=== PATIENT | male | born 1960 | race Caucasian/White ===

== ENCOUNTER 2019-11-05 09:16 | Outpatient (CLI) | payer BC, SELFPAY ==
--- NOTE | 2019-11-05 09:30 | USCV_ITS ---
Rolly Olivier Age: 59 Gender: M : 1960 Exam Date: 11/05/2019 09:20 Ordering Phys: Yahir Rodriguez MD ([email or web address]) Technologist: Veronica Escobedo Exam Location: [facility] [place] Indication: MILD BP: 153 / 96 HR: 79 Rhythm: Sinus Technical Quality: Fair MEASUREMENTS (Male / Female) Normal Values 2D ECHO LV Diastolic Diameter PLAX 4.3 cm 4.2 - 5.9 / 3.9 - 5.3 cm LV Systolic Diameter PLAX 2.6 cm LV Chamber Size 4.1 cm IVS Diastolic Thickness 1.7 cm 0.6 - 1.0 / 0.6 - 0.9 cm IVS Systolic Thickness 1.9 cm LVPW Diastolic Thickness 0.9 cm 0.6 - 1.0 / 0.6 - 0.9 cm LVPW Systolic Thickness 1.9 cm RV Chamber Size 3.3 cm LVOT Diameter 2.1 cm LV Ejection Fraction 2D Teich 69.6 % LA Diameter 4.6 cm LA Width 4.9 cm LA Height 4.7 cm RA Width 2.9 cm RA Height 3.8 cm M-MODE LV Diastolic Diameter MM 6.5 cm 4.2 - 5.9 / 3.9 - 5.3 cm LV Systolic Diameter MM 4.3 cm LV Ejection Fraction MM Teich 62.8 % IVS Diastolic Thickness MM 1.1 cm 0.6 - 1.0 / 0.6 - 0.9 cm IVS Systolic Thickness MM 1.5 cm LVPW Diastolic Thickness MM 1.3 cm 0.6 - 1.0 / 0.6 - 0.9 cm LVPW Systolic Thickness MM 1.9 cm RV Diastolic Diameter MM 1.5 cm Aortic Annulus Diameter 2.4 cm LA Ao Ratio MM 2.0 MV E Point Septal Separation 1.2 cm DOPPLER AV Peak Velocity 452.0 cm/s LVOT Peak Velocity 86.0 cm/s AV Area Cont Eq vti 0.6 cm squared AV Area Cont Eq pk 0.6 cm squared MV Area PHT 3.4 cm squared Mitral E to A Ratio 1.2 MV E' Velocity 10.0 cm/s Mitral E to MV E' Ratio 15.9 Mitral E to LV E' Lateral Ratio 11.8 Mitral E to LV E' Septal Ratio 25.3 TR Peak Velocity 309.4 cm/s TR Peak Gradient 38.3 mmHg TR Mean Velocity 219.6 cm/s TR Mean Gradient 21.5 mmHg TR Velocity Time Integral 83.3 cm TV Peak E Velocity 41.0 cm/s Right Atrial Pressure 3.0 mmHg Pulmonary Artery Systolic Pressu 41.3 mmHg PV Peak Velocity 80.0 cm/s FINDINGS Left Ventricle Normal left ventricular cavity size. Mild left ventricular hypertrophy. Normal left ventricular systolic function. No regional wall motion abnormalities. Grade II/IV diastolic dysfunction, moderately elevated filling pressures. Left ventricular ejection fraction is estimated at 60 %. Right Ventricle Normal right ventricular size and systolic function. Mild pulmonary hypertension, RVSP 41.3 mmHg. Right Atrium The right atrium is normal in size. Left Atrium Mildly increased left atrial size. Mitral Valve Structurally normal mitral valve without significant stenosis or prolapse. There is no mitral regurgitation. Aortic Valve Structurally normal trileaflet aortic valve. Moderate aortic valve calcification. Severe aortic valve stenosis, mean gradient 46.4 mmHg, IMELDA 0.59 cm squared. Tricuspid Valve Structurally normal tricuspid valve. Trace to mild tricuspid valve regurgitation. Pulmonic Valve Pulmonic valve not well visualized. Pericardium Normal pericardium without effusion. Aorta Normal ascending aorta dimension. CONCLUSIONS Normal left ventricular cavity size. Mild left ventricular hypertrophy. Normal left ventricular systolic function. No regional wall motion abnormalities. Grade II/IV diastolic dysfunction, moderately elevated filling pressures. Left ventricular ejection fraction is estimated at 60 %. Normal right ventricular size and systolic function. Mild pulmonary hypertension, RVSP 41.3 mmHg. Mildly increased left atrial size. Structurally normal trileaflet aortic valve. Moderate aortic valve calcification. Severe aortic valve stenosis, mean gradient 46.4 mmHg, IMELDA 0.59 cm squared. When compared to the previous echo done 11/09/2018, there has been a significant worsening of the aortic stenosis. Otherwise, the echo is unchanged. Dr. Yahir Rodriguez MD (Electronically Signed) Final Date: 05 November 2019 11:42 S
== END 2019-11-05 09:17 | disposition home or self-care (01) ==
PROVIDERS: Family Provider Family Medicine; PCP Internal Medicine; Visit Provider Internal Medicine Cardiovascular Disease
DX: I35.0 Nonrheumatic aortic (valve) stenosis (principal); I27.20 Pulmonary hypertension, unspecified; I51.7 Cardiomegaly
CPT/HCPCS: 93306

== ENCOUNTER → 2020-01-03 12:29 | Outpatient (BNVA) | payer BC, SELFPAY | PROVIDERS: Family Provider Family Medicine; PCP Internal Medicine; Visit Provider Nurse Practitioner Family | DX: R42 Dizziness and giddiness (principal); E13.9 Other specified diabetes mellitus without complications; I10 Essential (primary) hypertension; H66.92 Otitis media, unspecified, left ear; J44.9 Chronic obstructive pulmonary disease, unspecified | CPT/HCPCS: 36416; 80053; 80061; 82962; 83036; 84443; 85025 ==

== ENCOUNTER 2020-01-13 07:54 | Observation (INO) | payer BC, SELFPAY ==
[2020-01-13] VITALS (7 sets, daily range): BP systolic 117–150; BP diastolic 74–99; PULSE 67–83; RESP 16–18; TEMP 36.7–36.8; O2SAT 95–97; BMI 37.6
--- NOTE | 2020-01-13 06:23 | XACV_ITS ---
Ht: 175 cm Wt: 116 kg BSA: 2.42 m2 Gender: Male : 1960 Exam Priority: Routine Procedure(s): Procedure Description: Diagnostic procedure Procedure Description: Left Heart Catheterization Procedure Description: Coronary Angiography Diagnostic Cath Status: Elective Diagnostic Findings Patient has a twin brother who has recently gone open aortic valve replacement. Patient's echo now shows severe aortic stenosis. Angiography recommended for pre-TAVR assessment. Angiography reveals right coronary artery dominance. There is calcification of the aortic valve and mild to moderate calcification of the proximal coronary arteries. There is minor generalized luminal plaquing but the coronary arteries are normal. PCI Status: Elective Interventional RX Recommendation: other cardiac therapy w/o CABG/PCI Diagnostic RX Recommendation: other cardiac therapy w/o CABG/PCI Anticoagulation: Heparin Pressures Phase:Rest AO : 135 mmHg / 92 mmHg ( 109 mmHg ) @ 2:25:00 AM 127 mmHg / 89 mmHg ( 106 mmHg ) @ 2:26:00 AM Clinical Evaluation EBL: 5mL-10mL Procedural Details Procedure Consent Obtained. Pre-Procedure Time Out. Identified patient by full name and date of as verbalized by the patient/guarantor. Does the consent match the physician's order: Yes. Accurate & Complete Informed Consent: Yes. Inpatient/Outpatient History & Physical on Chart: Yes. If H&P is completed, is and addenduem needed: No; If yes, is the addendum complete: N/A. Visualize and Verify Site with Patient/Guarantor: N/A. Relevant Radiology Images available: N/A. The risks, benefits, and alternatives of sedation and/or procedure were discussed by physician. The patient agrees to continue. Procedure started. 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 Chest Pain Symptom Assessment: Non-anginal Chest Pain. Cardiovascular Instability: No,. Correct patient, site and procedure confirmed by cath team. Current diagnosis: Aortic stenosis. PERRLA. 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 Lungs clear x 5 lobes. IV Site on Arrival: 20 gauge in the left anticubital. IV Fluids: 0.9% NaCl at KVO. 0 mL infused prior to catheterization laboratory technician. Pre Procedural Pulses: bilateral dorsalis pedis was 3+. Pre Procedural Pulses: bilateral posterior tibial was 3+. Pre Procedural Pulses: right radial was 3+. Oxygen started at 2liters/min via nasal canula. bilateral groins was prepped with chloroprep then draped in the usual sterile fashion. right radial was prepped with chloroprep then draped in the usual sterile fashion. Physician notified. Baseline sample Acquired. HR: 88 BPM. Patient's family unavailable. Equipment: 6F - Radial. Physician arrived. Physician scrubbed in. Immediate Pre-Procedure Time Out. Correct Patient: Yes; Correct Procedure: Yes; Correct Site: Yes; Correct Patient Position: Yes; Correct Supplies: Yes; Dried Flammable Prep: Yes; Blood Products Available: N/A;. Lidocaine 1% infiltrated to the right radial. Patient has and allergy to sulfa. Arterial access obtained. A 6 belgian TIG catheter in over wire. Catheter inserted over the exchange wire. Multiple views taken of left coronary artery. Catheter out. Catheter removed over the exchange wire. A 6 belgian JR4 catheter in over wire. Catheter inserted over the exchange wire. Multiple views taken of right coronary artery. Catheter removed over the exchange wire. TR band placed. Hemostasis obtained. Post Procedure: Pulses reassessed and unchanged. PERRLA. 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 No VTE prophylaxis required. Medication's Wasted: Lidocaine 1% = 18 mL. Medication's Wasted: Heparin = 1000 mL. Medication's Wasted: Nitro = 49.8 mg. Total IV fluids: 50 mL. Fluoro: 3:09. Contrast type used: Omnipaque 300 mgI/mL, 500 mL bottle. [id number]. Post-op diagnosis: aortic stenosis. Complications: none. Estimated blood loss: 5mL-10mL. Procedure completed. Patient transferred by wheelchair to [address] [place] [address]. Site: Right Radial artery Sheath Size: 6 Fr Hemostasis Success: Unsuccessful Procedure Medications Start: 7:09 AM Stop: 7:09 AM Medication: Versed Amount: 1 mg Route: I.V. Start: 7:09 AM Stop: 7: AM Medication: Fentanyl Amount: 50 mcg Route: I.V. Start: 7:13 AM Stop: 7:13 AM Medication: Versed Amount: 1 mg Route: I.V. Start: 7:18 AM Stop: 7:18 AM Medication: Fentanyl Amount: 50 mcg Route: I.V. Start: 7:22 AM Stop: 7:22 AM Medication: Verapamil Amount: 5 mg Route: I.A. Start: 7:23 AM Stop: 7:23 AM Medication: Nitrogylcerin Amount: 200 mcg Route: I.A. Start: 7:25 AM Stop: 7:25 AM Medication: Heparin Amount: 5000 units Route: I.V. Start: 7:25 AM Stop: 7:25 AM Medication: Versed Amount: 1 mg Route: I.V. I, the attending physician, have reviewed and verified all procedure medications. Yes, all medications given per verbal order History/Risk Factors Hypertension: Yes Dyslipidemia: No Peripheral Arterial Disease (PAD): No Myocardial Infarction (OK): No Obesity: No Renal Disease: No Tobacco Use: Current/Recent(w/in 1 year) Prior Interventions PCI: No CABG: No Valve Surgery: No Report Signatures Finalized by:Dr. Yahir Rodriguez MD on 01/13/2020 7:47:36 AM
--- NOTE | 2020-01-13 06:55 | SUR.PREOP ---
MD NOTIFICATION MD aware patient ready for cath. Discussed pre op bloodwork dating 01/02. Verbal okay to proceed and use the labs from 01/02
[2020-01-13] MEDS: diphenhydrAMINE 50 mg Capsule PO (06:58)
--- NOTE | 2020-01-13 09:37 | PC.CHAP ---
Pastoral Care Encounter/Spiritual Assessment Type of Contact [] Declined manufacturing electrician visit [] Patient/Family/Request visit [] Outpatient visit [] Follow-up visit [] Physician referral [] Code/Alert [x] Routine visit [] Staff referral [] Actively dying [] Patient sleeping [] Family support [] [] Out of room [] Palliative care [] [] Receiving care in room [] Pre-surgical visit [] Trauma [] Long length of stay [] ICU visit [] Other: Relational/Emotional Strength [] Patient feels connected with others/family/visitors/staff [] Distress [] Loneliness/isolation [] Abandonment Spirituality of Patient [] Person of Jo-Ann [] Attends Catholic of their Jo-Ann [] Believes in Prayer [] Reads Bible or Moravian materials [] There are Spiritual issues to be addressed Motion Picture Narrator Interventions [x] Prayer [] Active listening [] Non-anxious presence [] Spiritual/emotional support [] Crisis/trauma care [] Spiritual counseling [] Bereavement support [] Provided bereavement packet [] Provided Bible/devotional materials [] Provided toy/stuffed animal, coloring book to patient or family member [] Provided Communion [] Anointing/[place] [] Salvation [x] Completed spiritual assessment [] Other: Impact on Illness or Injury [] Angry [] Fearful [] Anxious [] Often cries [] Exhaustion [] Unable to work [] Unable to attend mormon [] Unable to walk/stand [] Unable to read [] Unable to drive [] Unable to eat/drink [] Unable to sleep [] Unable to be with family [] Patient intubated [] Other: Summary Patient resting well. Patient in good spirits Time spent with patient 10 min
--- NOTE | 2020-01-16 16:50 | SUR.PREOP ---
Smoking Cessation and Pulmonary Rehab information sent to patient with a schedule of classes post discharge.
== END 2020-01-13 13:31 | disposition home or self-care (01) ==
LOC: MEDSURG 08:55
PROVIDERS: Internal Medicine Cardiovascular Disease; Admitting Provider Internal Medicine Cardiovascular Disease; Family Provider Family Medicine; PCP Family Medicine; Visit Provider Internal Medicine Cardiovascular Disease
DX: I35.0 Nonrheumatic aortic (valve) stenosis (principal); I70.0 Atherosclerosis of aorta; I25.10 Atherosclerotic heart disease of native coronary artery without angina pectoris; I10 Essential (primary) hypertension; F17.210 Nicotine dependence, cigarettes, uncomplicated; J44.9 Chronic obstructive pulmonary disease, unspecified; E13.9 Other specified diabetes mellitus without complications; Z82.49 Family history of ischemic heart disease and other diseases of the circulatory system
CPT/HCPCS: 93454; C1769; C1887; C1894; G0378; J1644; J2001; J2250; J3010; J3490; J7030; Q0163; Q9967

== ENCOUNTER → 2020-01-20 11:44 | Outpatient (BNVA) | payer BC, SELFPAY | PROVIDERS: Family Provider Family Medicine; PCP Family Medicine; Visit Provider Nurse Practitioner Family | DX: I35.0 Nonrheumatic aortic (valve) stenosis (principal) | CPT/HCPCS: 80048 ==

== ENCOUNTER 2020-12-31 13:13 | Outpatient (CLI) | payer BC, SELFPAY ==
--- NOTE | 2020-12-31 13:24 | XR_ITS ---
WS: [id number] Right shoulder, 2 views, 12/31/2020 Clinical Data: PAIN IN R SHOULDER Comparison: None. Findings: No fractures or dislocations are seen. The AC joint with mild osteoarthritis. The adjacent right clav icle, right scapula and ribs are normal. The soft tissues are unremarkable. XR/XR shoulder RT min 2V* [id number] Impression: Osteoarthritis of the right AC joint.
--- NOTE | 2020-12-31 13:24 | XR_ITS ---
WS: [id number] Lateral views of cervical spine in the flexion, extension and neutral positions. 12/31/2020 Clinical Data: CERVICALGIA Comparison: Cervical spine, 01/28/2019. Findings: There is calcification of the anterior longitudinal ligament at C2-C3 and C3-C4. There is anterior os teophytic spurring from C3 through C7. The disc heights are normal. No compression fractures are seen . There is no prevertebral soft tissue swelling. On flexion and extension there is no subluxation or limitation of motion. XR/XR cervical spine fl/ex [id number] Impression: 1. Anterior osteophyte spurring from C3 through C7. 2. Negative for limitation of motion or subluxation on flexion or extension.
== END 2020-12-31 13:14 | disposition home or self-care (01) ==
LOC: RAD 13:20
PROVIDERS: PCP Family Medicine; Visit Provider Nurse Practitioner
DX: M54.2 Cervicalgia (principal); M25.78 Osteophyte, vertebrae; M19.011 Primary osteoarthritis, right shoulder
CPT/HCPCS: 72040; 73030

== ENCOUNTER 2021-01-08 12:17 | Outpatient (CLI) | payer BC, SELFPAY ==
--- NOTE | 2021-01-08 12:22 | MR_ITS ---
WS: [id number] MRI CERVICAL SPINE NONCONTRAST TECHNIQUE: Sagittal T1, T2 and STIR imaging. Axial T2, gradient, and fiesta imaging. CLINICAL INFORMATION: CERVICALGIA COMPARISON: None. FINDINGS: Straightening of the normal cervical lordosis. Cord signal is normal. Mild disc bulging C4-C6. C2-C3: Normal. C3-C4: Mild bilateral bony foraminal narrowing left greater than right. Mild facet arthropathy. Spina l canal is patent. C4-C5: Mild disc osteophytic ridging. Mild bilateral bony foraminal narrowing. Mild facet arthropathy . Spinal canal is patent. C5-C6: Disc osteophyte complex with endplate ridging. Mild central canal stenosis. Moderate right and no significant left foraminal narrowing. Mild to moderate facet arthropathy. C6-C7: Disc osteophyte complex with endplate ridging. Mild central canal stenosis. Moderate to severe left and mild to moderate right bony foraminal narrowing. Mild facet arthropathy. C7-T1: No significant disc bulging. Spinal canal and foramen are patent. Visualized brain stem structures: Normal. Prevertebral soft tissues: Normal. MR/MR cervical spin wo con* [id number] IMPRESSION: 1. Straightening of the normal cervical lordosis. Cord signal is normal. 2. Mild central canal stenosis C5-C6 and C6-C7 with disc osteophyte complexes. 3. Moderate to severe bony foraminal narrowing right C5-C6 and left C6-C7. 4. Otherwise mild to moderate bony foraminal narrowing described above.
== END 2021-01-08 12:18 | disposition home or self-care (01) ==
PROVIDERS: PCP Family Medicine; Visit Provider Nurse Practitioner
DX: M54.2 Cervicalgia (principal); M48.02 Spinal stenosis, cervical region; M25.78 Osteophyte, vertebrae
CPT/HCPCS: 72141

== ENCOUNTER 2021-07-09 07:28 | Outpatient (CLI) | payer BC, SELFPAY | END 2021-07-09 07:29 | disposition home or self-care (01) | LOC: SLEEP 07:29 | PROVIDERS: PCP Family Medicine; Visit Provider Anesthesiology Pain Medicine | DX: G47.10 Hypersomnia, unspecified (principal); R06.83 Snoring | CPT/HCPCS: 95810 ==

== ENCOUNTER 2022-01-23 23:25 | Inpatient (IN) | payer BC, SELFPAY ==
[2022-01-23 23:35] VITALS: BP 101/68; PULSE 143; RESP 26; TEMP 36.1; O2SAT 91; BMI 41.3
--- NOTE | 2022-01-23 23:35 | ECG_ITS ---
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 Measurements Intervals [place] Rate: 148 P: MN: QRS: 15 QRSD: 148 T: 194 QT: 298 QTc: 468 Interpretive Statements ATRIAL FIBRILLATION WITH RAPID VENTRICULAR RESPONSE LEFT BUNDLE BRANCH BLOCK [120+ ms QRS DURATION, 80+ ms Q/S IN V1/V2, 85+ ms R IN I/aVL/V5/V6] No previous ECG available for comparison Electronically Signed On 01-24-2022 20:57:51 CDT by Kristen Crisostomo M.D. [email or web address].[id number]
--- NOTE | 2022-01-23 23:35 | XRR_ITS ---
PROCEDURE INFORMATION: Exam: XR Chest Exam date and time: 01/24/2022 12:12 AM Age: 61 years old Clinical indication: Pain; Tachypnea; Chest pressure; Additional info: Cp TECHNIQUE: Imaging protocol: XR of the chest. Views: 1 view. COMPARISON: CR Chest 2 views* [id number] 01/28/2019 3:09 PM FINDINGS: Lungs: Large parenchymal opacification in the perihilar aspect of the left upper lobe. Pleural spaces: Unremarkable. No pleural effusion. No pneumothorax. Heart/Mediastinum: Unremarkable. No cardiomegaly. Bones/joints: Unremarkable. XR/XR chest 1V portable [id number] IMPRESSION: 1. Large left upper lobe lesion. Favor bronchopneumonia. 2. Radiographic follow-up is indicated to exclude mass and document resolution.
[2022-01-23] MEDS: sodium chloride 0.9% 1,000 ML 999 ML IV (23:41)
[2022-01-23] MEDS: dilTIAZem 5 mg/mL SDV 5 mL 15 MG IVP (23:48)
[2022-01-24] VITALS (33 sets, daily range): BP systolic 87–165; BP diastolic 65–93; PULSE 81–120; RESP 16–36; TEMP 36.7–37.6; O2SAT 87–99
[2022-01-24 00:13] LABS: INR 1.36 (0.8-1.2)
[2022-01-24 00:14] LABS: Partial Thromboplastin Time 43.6 SECONDS (23.9-36.7)
[2022-01-24 00:16] LABS: Basophils # 0.1 10^3/uL (0.0-0.1); Basophils % 0.3 %; D Dimer 2.27 ug/mIFEU (0-0.59); Hemoglobin 12.9 g/dL (11.7-16.6); Lymphocytes # 1.4 10^3/uL (0.8-4.8); Lymphocytes % 8.1 %; Mean Corpuscular HGB Conc 32.3 g/dL (30.0-36.0); Mean Corpuscular Hemoglobin 28.5 pg (28.0-34.0); Mean Corpuscular Volume 88.3 fl (80-94); Mean Platelet Volume 11.5 fL (7.4-10.4); Monocytes # 1.4 10^3/uL (0.2-0.9); Monocytes % 8.4 %; Neutrophils # 13.81 10^3/uL (1.8-7.7); Neutrophils % 82.6 %; Nucleated Red Blood Cells % 0 %; Platelet Count 205 10^3/cmm (130-400); Red Blood Count 4.53 10^6/uL (4.1-5.3); Red Cell Distribution Width 14.7 % (12.1-15.1); White Blood Count 16.7 10^3/uL (4.0-10.0)
--- NOTE | 2022-01-24 00:16 | CTR_ITS ---
PROCEDURE INFORMATION: Exam: CTA Chest With Contrast Exam date and time: 01/24/2022 12:47 AM Age: 61 years old Clinical indication: Pain; Left-sided; Patient HX: Chronic cough and wheeze w new L sided cp; Additional info: Chest pain TECHNIQUE: Imaging protocol: Computed tomographic angiography of the chest with contrast. 3D rendering (Not supervised by radiologist): MIP and/or 3D reconstructed images were created by the technologist. Radiation optimization: All CT scans at this facility use at least one of these dose optimization techniques: automated exposure control; mA and/or kV adjustment per patient size (includes targeted exams where dose is matched to clinical indication); or iterative reconstruction. Contrast material: OMNI 350; Contrast volume: 80 ml; Contrast route: INTRAVENOUS (IV); COMPARISON: CR (CHEST, ) 01/24/2022 12:12 AM RADIATION DOSE METRICS: Total DLP (mGy-cm): 618.72 FINDINGS: Pulmonary arteries: Normal. No pulmonary emboli. Aorta: Unremarkable. No aortic aneurysm. No aortic dissection. Lungs: Large geographic area of consolidation in the posterior left upper lobe with air bronchograms. Minor patchy ground-glass foci within right upper lobe. Mild diffuse bronchial wall thickening. No significant bronchiectasis. Negative for peripheral honeycombing. Pleural spaces: Small volume left pleural effusion. Negative for pneumothorax. Heart: Left ventricle is mildly enlarged. Negative for pericardial effusion. Lymph nodes: Enlarged, calcified subcarinal lymph nodes in the mediastinum. Nonenlarged calcified right paratracheal lymph nodes in the mediastinum. Adrenal glands: Mass of the right adrenal gland with circumscribed margins. Stippled calcifications within the mass. Mass dimensions 5.4 cm x 3.9 cm in the transaxial plane. Areas of the mass are measuring low-attenuation, including fat density. Bones/joints: Unremarkable. No acute fracture. Soft tissues: Unremarkable. CT/CT angio chest PE protcl [id number] IMPRESSION: 1. Left upper lobe bronchopneumonia with small parapneumonic effusion. 2. Negative for pulmonary artery embolism. 3. Incidental finding of a large right adrenal gland mass which contains macroscopic calcifications and low density areas which are measuring lipid attenuation. 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 Adrenal protocol CT scan recommended in 6 months.
[2022-01-24 00:29] LABS: Alanine Aminotransferase 21 U/L (0-41); Albumin Level 3.9 g/dL (3.5-5.2); Alkaline Phosphatase 61 IU/L (40-130); Anion Gap 17.3 (5-19); Aspartate Amino Transferase 29 U/L (0-40); Blood Urea Nitrogen 19 mg/dL (8-23); Carbon Dioxide 21 mmol/L (22-29); Chloride 95 mmol/L (98-107); Creatine Phosphokinase 407 U/L (39-308); Creatinine Clr Calc Pharmacy 110.7735; Globulin 2.4 g/dL (1.3-4.6); Glomerular Filtration Rate 85.2 mL/min (90-130); Glucose 145 mg/dL (65-115); NT Pro B Type Natriuretic Pept 4400 pg/mL (0-125); Osmolality Calculated 273 mOsm/kg (285-295); Potassium 4.3 mmol/L (3.5-5.1); Sodium 129 mmol/L (136-145); Total Bilirubin 0.7 mg/dL (0.15-1.2); Total Protein 6.3 g/dL (6.6-8.7)
[2022-01-24 00:33] LABS: Troponin(5th) Baseline 79 ng/L (0-15)
[2022-01-24] MEDS: iohexol 350 mg/mL 100 mL Btl IV (00:53)
--- NOTE | 2022-01-24 01:35 | ECG_ITS ---
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 Measurements Intervals [place] Rate: 105 P: [place]: QRS: 37 QRSD: 150 T: 201 QT: 370 QTc: 491 Interpretive Statements ATRIAL FIBRILLATION WITH RAPID VENTRICULAR RESPONSE LEFT BUNDLE BRANCH BLOCK [120+ ms QRS DURATION, 80+ ms Q/S IN V1/V2, 85+ ms R IN I/aVL/V5/V6] Compared to ECG 01/23/2022 23:30:59 No significant changes Electronically Signed On 01-25-2022 17:18:09 CDT by Otto Hollingsworth M.D. [id number]
[2022-01-24] MEDS: cefTRIAXone 1,000 MG in sodium chloride 0.9% (plus) 50 ML 100 MG IV (02:03)
[2022-01-24 02:11] LABS: Troponin 5 2HR 81.35 ng/L (0-15)
--- NOTE | 2022-01-24 02:11 | P.HP_ITS ---
Providers/Chief Complaint Admitting Physician: Merlin Calloway DO Primary Care Provider: Betzy Novoa MD Chief Complaint: Chest Pain History of Present Illness the patient is a 61-year-old male who presented to [facility] which started approximately 1 week prior to hospitalization. He states it was gradual onset. He admits to onset of fever, nausea, cough which is productive yellow sputum, wheeze, myalgia, dizziness, sensation of rapid heartbeat. The patient also complains of chest pain which is substernal without radiation. His describes a sharpness and has been intermittent since the time of onset. As worst rated 7 out of 10 and currently rates 1 out of 10. He did not take any medication for the pain at home. The patient denies rigors, vomiting, abdominal pain, d iarrhea, dyspnea, lightheadedness, diaphoresis, palpitations, sensation knee regular heartbeat. He denies any new peripheral edema. He denies dysgeusia, a no dyspnea, headache. He presents for further evaluation Review of Systems General: Reports: 10 or more systems reviewed and unremarkable except in HPI and below Medications/Allergies Home Medications Medication Instructions Recorded Confirmed Last Taken Type tizanidine 4 mg tablet 4 mg PO .qhs PRN #30 tab 11/21/19 04/21/21 Unknown Rx fluticasone 250 mcg-salmeterol 50 1 inh INHALATION BID #60 each 11/25/19 04/21/21 01/12/20 13:00 Rx mcg/dose blistr powdr for inhalation (Wixela Inhub) meclizine 25 mg tablet 25 mg PO TID PRN #20 tab 01/03/20 04/21/21 Unknown Rx hydrocodone 5 mg-acetaminophen 325 1 tab PO Q8H 10 Days #30 tab 12/15/20 04/21/21 Unknown Rx mg tablet albuterol sulfate 90 mcg/actuation See Rx Instructions .ROUTE 06/09/21 Unknown Rx aerosol inhaler .COMPLEX #8.5 g celecoxib 200 mg capsule See Rx Instructions .ROUTE 07/26/21 Unknown Rx .COMPLEX #60 cap Allergies Allergy/AdvReac Type Severity Reaction Status Date / Time Sulfa (Sulfonamide Allergy Unknown Unknown Verified 04/21/21 15:22 Antibiotics) PFSH Acute PFSH: Medical History Aortic stenosis COPD (chronic obstructive pulmonary disease) Diabetes 1.5, managed as type 2 History of colon cancer HTN (hypertension) Osteoarthritis Tobacco abuse Surgical History Status post laparoscopic colectomy Family History Father Cancer COLON CA Social History Smoking and tobacco status: current every day smoker cigarettes Packs smoked per day: 1 Marital status: / Current occupational status: employed Current occupation: [employer] Vitals/I&O/Wt Last Vital Signs Temp 97.0 F L 01/23/22 23:35 Pulse 143 H 01/23/22 23:35 Resp 26 H 01/23/22 23:35 BP 101/68 01/23/22 23:35 Pulse Ox 91 01/23/22 23:35 Weight last 48 hrs Weight 127.006 kg Physical Exam Narrative: General: -Alert -No acute distress -No dyspnea -No tachypnea Head: -Atraumatic -Normocephalic Eyes: -Pupils equally round and reactive to light and accommodation -Extraocular muscles intact Neurological: -Cranial nerves II-XII intact Neck: -No jugular venous distention -No thyromegaly -No cervical lymphadenopathy Heart: -Regular rate -Regular rhythm -No murmurs -No gallops -No rubs Lungs: -No wheeze -No rhonchi -No rales ? Abdomen: -Normal bowel sounds in all four quadrants -No rebound -No guarding -No tenderness Extremities: -2/4 pulse in all four extremities -No clubbing -No cyanosis -No edema -No calf tenderness present bilaterally -Negative Migel?s sign bilaterally Musculoskeletal: -5/5 bilateral upper extremity strength -5/5 bilateral lower extremity strength -Sensorium of bilateral upper extremities are equal and intact -Sensorium of bilateral lower extremities are equal and intact ? Additional Details / Additional Findings / Exceptions / Miscellaneous: Data : 01/23/22 23:33 01/23/22 23:33 Micro: Microbiology 01/24/22 01:45 Blood Culture - Preliminary Blood SPECIMEN COLLECTED 01/24/22 01:40 Blood Culture - Preliminary Blood SPECIMEN COLLECTED A&P Assessment and plan (1) Osteoarthritis: Status: Acute Qualifiers: Osteoarthritis location: unspecified site Osteoarthritis type: unspecified Qualified Code(s): M19.90 - Unspecified osteoarthritis, unspecified site Plan atrial for ablation, new onset. Will monitor patient on telemetry and checks her cardiac enzymes. Check TSH, free T4, magnesium level. We will recheck EKG on the morning of January 24, 2022. Echo Karg grams pending. IV heparin drip per protocol plus IV Cardizem drip per protocol Pneumonia. Is at the mycin 500 Mill grams IV daily plus Rocephin 1 g IV daily plus ipratropium every 4 hours Right adrenal mass. Patient will require right adrenal CT approach per protocol 6 months post discharge which would be in July 12, 2022 Hyponatremia. We will monitor sodium level intermittently. IV normal saline 100 ML's per hour Muscle spasm Chronic pain Elevated troponin. This likely sequelae of atrial for ablation with rapid ventricular response. Will monitor patient on telemetry and checks her cardiac enzymes. echo Karg grams pending.We will recheck EKG on the morning of January 24, 2022. Aspirin 81 Mill grams by mouth daily plus Lipitor 40 Mill cans by mouth daily at bedtime. no beta-shaneka or nitroglycerin secondary to borderline blood pressure Hypocalcemia. Will monitor calcium level intermittently and supplements necessary Osteoarthritis COPD, not O2 dependent. Solu-Medrol 60 Mill grams IV every 8 hours plus ipratropium every 4 hours History of severe aortic stenosis with grade 2 diastolic dysfunction. Echo Karg grams pending Diabetes. Will check appears to glucose every before meals and at bedtime and provide some slight scale Hypertriglyceridemia Hypertension. IV Cardizem drip per protocol for atrial fibrillation Obesity. The patient becomes regarding lifestyle modification Smoker. The patient will be counseled regarding smoking cessation History of colon cancer, status post partial colon resection. The patient did not require chemotherapy or radiation therapy. The patient indicates that he is in remission and no longer requires to be monitored for this medical condition Marijuana abuse. The patient will need to be counseled regarding marijuana cessation GI Proflex is. Protonix 40 Mill grams by mouth daily DVT prophylaxis. IV heparin drip per protocol Attestations Medical Necessity Statement*: anticipate length of stay is greater than 2 midnights for treatment of pneumonia and atrial for ablation Coding Level of Care Code Acute Matrix Worker for Chg Fwd Diagnoses Osteoarthritis M19.90 Osteoarthritis location: unspecified site Osteoarthritis type: unspecified
[2022-01-24 02:12] LABS: Troponin 5 2HR Delta 2.35 ABS# (0-10)
--- NOTE | 2022-01-24 02:12 | ED_ITS ---
HPI - Chest Pain General: Chief Complaint: Chest Pain Stated Complaint: Chest Pain Time Seen by Provider: 01/23/22 23:25 Source: patient and EMS History of Present Illness: 61-year-old gentleman with a history of COPD. He presents with acute onset chest pain. He states that his been dealing with a cough for quite some time now. He had chest pain at home this evening. EMS found him to be on room atrial fibrillation with RVR. He denies fever. He dante es a history of coronary disease. He does have a history of hypertension and aortic stenosis. MD complaint: chest pain Pertinent past history: other Onset (ago): hour(s) Timing of current episode: constant Prior episodes: Yes Onset: during rest Pain location: substernal and left chest Quality: aching and sharp Relieving factors: nothing Exacerbating factors: nothing and exertion Associated symptoms: Reports diaphoresis, dyspnea and palpitations; Deny abdominal pain, fever(s), leg edema, nausea or vomiting Treatment prior to arrival: aspirin and nitroglycerin Review of Systems Const: Reports: diaphoresis; Denies: fever(s) Eyes: Denies: change in vision ENMT: Denies: throat pain Card: Reports: palpitations Resp: Reports: dyspnea GI: Denies: abdominal pain, nausea or vomiting Musc: Denies: neck pain Neuro: Denies: headache(s) PFS ED PFSH: Medical History Aortic stenosis COPD (chronic obstructive pulmonary disease) Diabetes 1.5, managed as type 2 History of colon cancer HTN (hypertension) Osteoarthritis Tobacco abuse Surgical History Status post laparoscopic colectomy Family History Father Cancer COLON CA Social History Smoking and tobacco status: current every day smoker cigarettes Packs smoked per day: 1 Marital status: / Current occupational status: employed Current occupation: [employer] Physical Exam Const: GENERAL APPEARANCE: cooperative and ill appearing NUTRITIONAL APPEARANCE: obese HENMT: COMMON NORMALS: normocephalic, atraumatic and Normal external nose present HEAD & SCALP: normocephalic and atraumatic FACE & SINUS: normal facial exam and face symmetric NOSE: Normal external nose present Eye: COMMON NORMALS: Equal, round and reactive pupils present and EOMs intact bilaterally PUPIL: Yes Equal, round and reactive pupils present Neck/C-Spine: GENERAL: Yes trachea midline Chest: CHEST: Yes Symmetrical chest wall rise and Yes tenderness (Left chest) Resp: EFFORT & INSPECTION: Yes tachypneic and Yes uses accessory muscles AUSCULTATION: rhonchi and wheezes Cardio: RATE: tachycardic RHYTHM: abnormal rhythm irregularly irregular GI: COMMON NORMALS: Soft to palpation INSPECTION: Yes normal to inspection PALPATION: Yes Soft to palpation and No Tenderness to palpation present (GI) Extremity: COMMON NORMALS: no pedal edema Neuro: JONATHON COMA SCALE: document GCS findings Jonathon coma scale eye opening: Spontaneous Jonathon coma scale verbal response: Orientated Jonathon coma scale motor response: Obey commands [place] coma scale total score: 15 Course Consultations: Consultation #1: harleen Vital Signs: Vital signs: Vital Signs Temperature 97.0 F L 01/23/22 23:35 Pulse Rate 109 H 01/24/22 02:00 Respiratory Rate 24 H 01/24/22 02:00 Blood Pressure 107/65 01/24/22 02:00 Pulse Oximetry 87 L 01/24/22 02:00 MDM - Chest Pain Medical Decision Making 61-year-old gentleman brought in by EMS. He is in rapid atrial fibrillation. Blood pressures were around 100 over 60s. He responded to 15 mg bolus of diltiazem, along with 1 L fluid bolus. Rate went from 160 down to 110s. He is placed on a drip. He is also given IV fluid. Chest x-ray reveals left upper lobe infiltrate versus mass as it is quite dense. White blood cell count is 16.7. Bicarbonate is 21. First troponin is 79, with 2-hour troponin of 81. New onset A. fib with RVR is likely related to pneumonia. CTA reveals left upper lobe bronchopneumonia with parapneumonic effusion. It is negative for PE. He is requiring oxygen, but is no longer in respiratory distress. He will go to the [facility] Lab Data : 01/23/22 23:33 01/23/22 23:33 Radiology Impressions Chest X-Ray 01/23/22 23:35 IMPRESSION: 1. Large left upper lobe lesion. Favor bronchopneumonia. 2. Radiographic follow-up is indicated to exclude mass and document resolution. Chest CTA 01/24/22 00:16 IMPRESSION: 1. Left upper lobe bronchopneumonia with small parapneumonic effusion. 2. Negative for pulmonary artery embolism. 3. Incidental finding of a large right adrenal gland mass which contains macroscopic calcifications and low density areas which are measuring lipid attenuation. 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 Adrenal protocol CT scan recommended in 6 months. Laboratory Results WBC 16.7 10^3/uL (4.0-10.0) H 01/23/22 23: RBC 4.53 10^6/uL (4.1-5.3) 01/23/22: Hgb 12.9 g/dL (11.7-16.6) 01/23/22 23: Hct 40.0 % (42.0-52.0) L 01/23/22: MCV 88.3 fl (80-94) 01/23/22 23: MCH 28.5 pg (28.0-34.0) 01/23/22 23: MCHC 32.3 g/dL (30.0-36.0) 01/23/22 23: RDW 14.7 % (12.1-15.1) 01/23/22 23: Plt Count 205 10^3/cmm (130-400) 01/23/22 23: MPV 11.5 fL (7.4-10.4) H 01/23/22 23:33 Neut % (Auto) 82.6 % 01/23/22 23: Lymph % (Auto) 8.1 % 01/23/22 23: Arroyo % (Auto) 8.4 % 01/23/22: Eos % (Auto) 0.0 % 01/23/22: Baso % (Auto) 0.3 % 01/23/22 23: Neut # (Auto) 13.81 10^3/uL (1.8-7.7) H 01/23/22 23: Lymph # (Auto) 1.4 10^3/uL (0.8-4.8) 01/23/22 23:33 Arroyo # (Auto) 1.4 10^3/uL (0.2-0.9) H 01/23/22 23:33 Eos # (Auto) 0.0 10^3/uL (0.0-0.8) 01/23/22 23: Baso # (Auto) 0.1 10^3/uL (0.0-0.1) 01/23/22 23:33 Nucleated RBC % (auto) 0 % 01/23/22 23: Nucleated RBCs # 0.0 /100WBC 01/23/22 23:33 PT 17.10 SECONDS (12.1-14.9) H 01/23/22 23:33 INR 1.36 (0.8-1.2) H 01/23/22 23:33 APTT 43.6 SECONDS (23.9-36.7) H 01/23/22 23:33 D-Dimer 2.27 ug/mIFEU (0-0.59) H 01/23/22 23:33 Sodium 129 mmol/L (136-145) L 01/23/22 23:33 Potassium 4.3 mmol/L (3.5-5.1) 01/23/22 23:33 Chloride 95 mmol/L (98-107) L 01/23/22 23:33 Carbon Dioxide 21 mmol/L (22-29) L 01/23/22 23:33 Anion Gap 17.3 (5-19) 01/23/22 23:33 BUN 19 mg/dL (8-23) 01/23/22 23: Creatinine 0.9 mg/dL (0.7-1.2) 01/23/22 23:33 GFR Calculation 85.2 mL/min (90-130) L 01/23/22 23:33 Glucose 145 mg/dL (65-115) H 01/23/22 23:33 Calculated Osmolality 273 mOsm/kg (285-295) L 01/23/22 23:33 Lactic Acid 1.4 mmol/L (0.5-2.2) 01/24/22 01:40 Calcium 8.0 mg/dL (8.5-10.5) L 01/23/22 23:33 Total Bilirubin 0.7 mg/dL (0.15-1.2) 01/23/22 23:33 AST 29 U/L (0-40) 01/23/22 23:33 ALT 21 U/L (0-41) 01/23/22 23:33 Alkaline Phosphatase 61 IU/L (40-130) 01/23/22 23:33 Creatine Kinase 407 U/L (39-308) H* 01/23/22 23:33 Troponin T Baseline 79 ng/L (0-15) H 01/24/22 00:09 Troponin T 120 Minute 81.35 ng/L (0-15) H 01/24/22 01:45 Delta Troponin T 2.35 ABS# (0-10) 01/24/22 01:45 NT-Pro-B Natriuret Pep 4400 pg/mL (0-125) H 01/23/22 23:33 Total Protein 6.3 g/dL (6.6-8.7) L 01/23/22 23:33 Albumin 3.9 g/dL (3.5-5.2) 01/23/22 23:33 Globulin 2.4 g/dL (1.3-4.6) 01/23/22 23:33 Discharge Plan Discharge Patient Disposition: Admitted As Inpatient Admit Provider: Merlin Calloway Clinical Impression: Atrial fibrillation with rapid ventricular response, Bronchopneumonia, Acute respiratory failure with hypoxia Condition: Fair Coding Level of Care Code 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
[2022-01-24 02:13] LABS: Lactic Sepsis W/Reflex 1.4 mmol/L (0.5-2.2)
--- NOTE | 2022-01-24 02:14 | USCV_ITS ---
Rolly Olivier Age: 61 Gender: M : 1960 Exam Date: 01/24/2022 08:39 Ordering Phys: Merlin Calloway DO Technologist: Machelle Adkins [place]am [place] [facility] [place] Indication: AND PNEUMONIA BP: 125 / 76 HR: 92 Rhythm: Atrial fibrillation Technical Quality: Adequate MEASUREMENTS (Male / Female) Normal Values 2D ECHO LV Diastolic Diameter PLAX 3.9 cm 4.2 - 5.9 / 3.9 - 5.3 cm LV Systolic Diameter PLAX 3.2 cm LV Chamber Size 4.5 cm IVS Diastolic Thickness 1.2 cm 0.6 - 1.0 / 0.6 - 0.9 cm IVS Systolic Thickness 1.4 cm LVPW Diastolic Thickness 1.2 cm 0.6 - 1.0 / 0.6 - 0.9 cm LVPW Systolic Thickness 1.4 cm RV Chamber Size 3.6 cm LVOT Diameter 2.0 cm LV Ejection Fraction 2D Teich 34.9 % LV Ejection Fraction MOD 2C 23.0 % LV Ejection Fraction 2C AL 23.3 % LA Diameter 4.2 cm LA Width 4.0 cm LA Height 4.9 cm RA Width 4.0 cm RA Height 4.5 cm Aorta at Sinotubular Diameter 2.2 cm IVC Diameter 3.1 cm M-MODE Aortic Annulus Diameter 2.9 cm LA Ao Ratio MM 1.7 MV E Point Septal Separation 0.9 cm DOPPLER AV Peak Velocity 443.8 cm/s LVOT Peak Velocity 74.3 cm/s AV Area Cont Eq vti 0.5 cm squared AV Area Cont Eq pk 0.5 cm squared MV Area PHT 4.4 cm squared MV E' Velocity 74.5 cm/s Mitral E to MV E' Ratio 17.3 Mitral E to LV E' Lateral Ratio 15.7 Mitral E to LV E' Septal Ratio 19.5 TR Peak Velocity 262.3 cm/s TR Peak Gradient 27.5 mmHg TR Mean Velocity 191.9 cm/s TR Mean Gradient 16.9 mmHg TR Velocity Time Integral 74.4 cm TV Peak E Velocity 69.0 cm/s Right Atrial Pressure 15.0 mmHg Pulmonary Artery Systolic Pressu 42.5 mmHg PV Peak Velocity 76.0 cm/s RV Acceleration Time 0.1 s RV Ejection Time 0.4 s RV AcT/ET 0.3 FINDINGS Left Ventricle Normal left ventricular size. LV systolic function is severely reduced with EF of 30-35%. Regional wall motion abnormalities cannot be accurately assessed because of poor ultrasonic windows. Right Ventricle Grossly normal Right Atrium The right atrium is normal in size. RA pressure is elevated Left Atrium The left atrium is dilated Mitral Valve Mitral valve is thickened without significant stenosis or prolapse. There is mild to moderate mitral regurgitation. Aortic Valve Aortic valve is severely calcified and thickened. Severe aortic stenosis with aortic valve area of 0.49 cm squared and mean gradient 53 mmHg. Tricuspid Valve Structurally normal tricuspid valve without significant stenosis. Mild to moderate tricuspid regurgitation. Pulmonary artery systolic pressure is normal. Pulmonic Valve Not well visualized Pericardium Normal pericardium without effusion. Aorta Normal ascending aorta dimension. IVC CONCLUSIONS Technically limited quality echocardiogram because of poor ultrasonic windows LV systolic function is severely reduced with EF of 30 to 35%. Regional wall motion abnormalities cannot be assessed because of poor ultrasonic windows. Mitral valve is thickened. Mild to moderate mitral regurgitation. Aortic valve is severely calcified and thickened. Severe aortic stenosis with aortic valve area of 0.49 cm. Mean gradient of 53 mmHg. Mild to moderate tricuspid regurgitation. Compared to prior echocardiogram from 11/05/2019, LV systolic function has significantly decreased now and aortic stenosis has progressed. Otto Hollingsworth MD (Electronically Signed) Final Date: 24 Jan 2022 10:42 S
[2022-01-24] MEDS: sodium chloride 0.9% 1,000 ML 999 ML IV (02:39)
[2022-01-24 02:44] LABS: Free T4 Free Thyroxine 1.03 ng/dL (0.82-1.77); Thyroid Stimulating Hormone 0.99 uIU/mL (0.27-4.20)
[2022-01-24] MEDS: morphine 4 mg/mL SDV 1 mL IVP (03:15)
[2022-01-24] MEDS: ondansetron 2 mg/ML SDV 2 mL 4 MG IVP (03:15)
--- NOTE | 2022-01-24 03:17 | PC.NURSE ---
Dr. Calloway ordered to titrate Cardizem drip as needed per protocol.
[2022-01-24] MEDS: heparin drip 25,000 UNIT/500 ML PREMIX 35.56 UNIT IV (03:29)
[2022-01-24] MEDS: heparin 5,000 unit/mL INJ 1 mL IV (03:53)
[2022-01-24] MEDS: ipratropium 0.5 mg/2.5 mL Neb INHALATION ×5 (04:33→19:44)
[2022-01-24] MEDS: HYDROcodone-acetaminophen 5-325 mg Tablet 1 TAB PO ×3 (04:52→21:06)
[2022-01-24] MEDS: sodium chloride 0.9% 1,000 ML 100 ML IV (04:53)
[2022-01-24] MEDS: azithromycin 500 MG in sodium chloride 0.9% 250 ML 250 MG IV (04:53)
[2022-01-24] MEDS: calcium gluconate 0.9% NaCL 1 GM/50 ML PREMIX IV (05:03)
[2022-01-24 05:07] LABS: Basophils # 0.1 10^3/uL (0.0-0.1); Basophils % 0.3 %; Eosinophils % 0.1 %; Hematocrit 38.8 % (42.0-52.0); Hemoglobin 11.8 g/dL (11.7-16.6); Lymphocytes # 1.9 10^3/uL (0.8-4.8); Lymphocytes % 10.1 %; Mean Corpuscular HGB Conc 30.4 g/dL (30.0-36.0); Mean Corpuscular Hemoglobin 27.8 pg (28.0-34.0); Mean Corpuscular Volume 91.5 fl (80-94); Mean Platelet Volume 11.2 fL (7.4-10.4); Monocytes # 1.3 10^3/uL (0.2-0.9); Monocytes % 7.1 %; Neutrophils # 15.04 10^3/uL (1.8-7.7); Neutrophils % 81.6 %; Nucleated Red Blood Cells % 0 %; Platelet Count 192 10^3/cmm (130-400); Red Blood Count 4.24 10^6/uL (4.1-5.3); Red Cell Distribution Width 14.9 % (12.1-15.1); White Blood Count 18.4 10^3/uL (4.0-10.0)
[2022-01-24 05:25] LABS: Troponin 5 6HR 80.45 ng/L (0-15)
[2022-01-24 05:27] LABS: Troponin 5 6HR Delta 1.45 ng/L (0-12)
--- NOTE | 2022-01-24 05:35 | ECG_ITS ---
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 Measurements Intervals [place] Rate: 104 P: WI: QRS: 24 QRSD: 145 T: 206 QT: 373 QTc: 492 Interpretive Statements ATRIAL FIBRILLATION WITH RAPID VENTRICULAR RESPONSE LEFT BUNDLE BRANCH BLOCK [120+ ms QRS DURATION, 80+ ms Q/S IN V1/V2, 85+ ms R IN I/aVL/V5/V6] Compared to ECG 01/24/2022 04:27:08 No significant changes Electronically Signed On 01-24-2022 17:41:56 CDT by Kristen Crisostomo M.D. [id number]
[2022-01-24 05:46] LABS: Add Urine Culture? No; Add Urine Microscopic? YES; Bacteria Urine TRACE /hpf; Bilirubin Urine 1+ (Negative); Blood Urine 3+ (Negative); Glucose Urine UA Norm (Normal); Ketones Urine Negative (Negative); Leukocyte Esterase Urine Negative (Negative); Mucus Urine 1+ /hpf; Nitrate Urine Negative (Negative); Protein Urine 1+ (Negative); RBC Urine 0-4 /hpf (0-2); Specific Gravity, Urine 1.015 (1.005-1.030); Squamous Epithelial Cell Urine 0-4 /hpf (0-5); Urine Appearance Clear (CLEAR); Urine Color Yellow (Yellow); Urobilinogen Urine 8 mg/dL (Negative); WBC Urine 0-4 /hpf (0-5); pH Urine 6.5 (5-7)
[2022-01-24 06:24] LABS: Anion Gap 17.4 (5-19); Blood Urea Nitrogen 18 mg/dL (8-23); Calcium 7.3 mg/dL (8.5-10.5); Carbon Dioxide 20 mmol/L (22-29); Chloride 95 mmol/L (98-107); Glomerular Filtration Rate 113.9 mL/min (90-130); Glucose 115 mg/dL (65-115); Osmolality Calculated 269 mOsm/kg (285-295); Potassium 4.4 mmol/L (3.5-5.1); Sodium 128 mmol/L (136-145)
[2022-01-24 06:28] LABS: Glucose Point of Care 137 mg/dL (70-110)
--- NOTE | 2022-01-24 08:25 | PC.NURSE ---
provider at bedside insructed to stop heaprin GTT protocolol and stop IVF
--- NOTE | 2022-01-24 09:00 | PC.NURSE ---
patient sat up to side of bed and pulled out IVs from left ac right ac iv intact although cath is exposed discontinued a this time
[2022-01-24] MEDS: aspirin 81 mg Chew Tablet PO (09:12)
[2022-01-24] MEDS: pantoprazole DR 40 mg Tablet PO (09:12)
[2022-01-24] MEDS: metoprolol tartrate 25 mg Tablet PO ×2 (09:12→12:37)
[2022-01-24 11:12] LABS: Glucose Point of Care 181 mg/dL (70-110)
[2022-01-24] MEDS: insulin lispro 100 unit/1 mL SUBCUT ×3 (12:38→22:11)
[2022-01-24] MEDS: levalbuterol 1.25 mg/3 mL Neb INHALATION ×3 (12:54→19:44)
--- NOTE | 2022-01-24 13:41 | P.PN_ITS ---
Subjective Subjective: This morning patient was complaining of back pain which she is attributing to osteophytes He is requiring 4.5 L of oxygen He does have dyspnea on exertion I did speak in length with him regarding the severity of aortic stenosis, I requested servomechanism assembler to read his echo, Dr. Hollingsworth recommended transfer to higher level of care for aortic valve replacement, I spoke with [facility] and [place] out and then tried [facility], they do not have any beds available, I spoke with his cousin and sister as well, Resumed his hydrocodone A. fib RVR resolving titrate off Cardizem drip, discontinue Cardizem as he has low EF, would use metoprolol 50mg twice daily Patient is agreeable for transfer Patient is chest pain-free Vitals/I&O/Wt Last Vital Signs Temp 98.1 F 01/24/22 10:57 Pulse 88 01/24/22 13:00 Resp 20 H 01/24/22 13:00 BP 114/93 01/24/22 10:57 Pulse Ox 95 01/24/22 13:00 01/23/22 01/24/22 01/24/22 22:59 06:59 14:59 Intake Total 2650.000 / 2650.000 1127.840 / 1127.840 Output Total 400 / 400 Balance 2250.000 / 2250.000 1127.840 / 1127.840 Weight last 48 hrs Weight 127.006 kg Physical Exam Narrative: Patient is very agitated because of his back pain Currently on 4.0 L oxygen Clinically does not have signs of fluid overload Bilateral breath sound with crackles and rhonchi Diffuse expiratory wheezing noted as well Afebrile Distended abdomen, surgical scar noted S1, S2 variable Abdomen soft but distended No signs of edema of legs noted Nonfocal neuro exam Data : 01/24/22 04:52 01/24/22 04:52 Micro: Microbiology 01/24/22 01:45 Blood Culture - Preliminary Blood SPECIMEN COLLECTED 01/24/22 01:40 Blood Culture - Preliminary Blood SPECIMEN COLLECTED A&P Assessment and plan (1) Atrial fibrillation with rapid ventricular response: Status: Acute (2) Bronchopneumonia: Status: Acute (3) Acute respiratory failure with hypoxia: Status: Acute (4) Aortic stenosis: Status: Acute (5) Diabetes 1.5, managed as type 2: Status: Acute Plan A. fib with severe aortic valve stenosis Low EF which is reduced from previous Discontinue Cardizem, would use metoprolol If infusion needed for A. fib RVR would recommend esmolol drip Patient is chest pain-free Heart rate currently in 80s Start metoprolol 50 mg twice a day Switch him to Lovenox He is chest pain-free troponin without significant delta I tried to reach out to 3 different hospitals, no beds available, family updated, Dr. Hollingsworth also recommended transfer for TAVR Judicious use of diuretics with underlying aortic valve stenosis Cardiomyopathy: Likely related to coronary ischemia and severe no active chest pain, troponin without significant delta, patient has history of coronary to disease status post stent, LAD stent was last year EKG showing left bundle branch block with A. fib wide QRS pattern Acute hypoxia related to left-sided pneumonia currently on 4.5 L nasal cannula Back pain for osteoarthritis continue hydrocodone High D-dimer no signs of PE, check venous Doppler to rule out DVT Left-sided pneumonia with parapneumonic effusion Continue community-acquired pneumonia regimen I would use steroids along DuoNeb GERD: Continue Protonix Patient is full code Cardiac diet He is at risk of developing pulm edema, if he becomes more short of breath we will transfer him to ICU and start BiPAP Patient was seen 3 times today, updated his sister as well, Attestations Medical Necessity Statement*: Continue medical management Time Spent in Patient Care: 50mins Coding Level of Care Code Acute Inspector Production Plastic Parts for Chg Fwd Diagnoses Atrial fibrillation with rapid ventricular response I48.91 Bronchopneumonia J18.0 Acute respiratory failure with hypoxia J96.01 Aortic stenosis I35.0 Diabetes 1.5, managed as type 2 E13.9
--- NOTE | 2022-01-24 13:56 | USCV_ITS ---
Soy Rolly Age: 61 Gender: M : 1960 Exam Date: 01/24/2022 14:49 Ordering Phys: Gina Ramsey MD Technologist: LILLI Exam Location: [facility] [place] Indication: SWELLING HISTORY: Lower extremity swelling. PROCEDURES: Venous duplex imaging was performed in bilateral lower extremities. The following venous structures were evaluated: common femoral vein, profunda vein, proximal portion of the greater saphenous vein, superficial femoral vein, and the popliteal vein. In addition, the posterior tibial and peroneal trunk were evaluated. Serial compression, augmentation maneuvers, and spectral Doppler flow evaluation were performed. FINDINGS: No evidence of DVT seen in any vessel visualized at this time. CONCLUSIONS No evidence of right lower extremity DVT. No evidence of left lower extremity DVT. Remington Gomez MD (Electronically Signed) Final Date: 24 Jan 2022 15:32 S
[2022-01-24] MEDS: enoxaparin 120 mg/0.8 mL Syringe SUBCUT (14:58)
--- NOTE | 2022-01-24 17:16 | P.CONIM_ITS ---
Providers/Reason For Consult Consulting Physician/Specialty*: Otto Hollingsworth MD/ Cardiology Reason for Consult*: Severe aortic stenosis Requesting Physician: Dr Ramsey Attending Physician: Gina Ramsey MD Primary Care Provider: Betzy Novoa MD History of Present Illness History of Present Illness Rolly Olivier is a 61 year old male with past medical history of hypertension, tobacco abuse, diabetes who presented to the hospital with acute respiratory distress. Patient has a history of severe aortic stenosis and he was re commended to undergo valve replacement couple of years ago when he refused it. He is also found to be in A. fib with RVR. He has a underlying left bundle branch block. Patient feels very short of breath. Currently on 4.5 L of oxygen. Echocardiogram performed today shows LV systolic function is severely reduced with EF of 30 to 35% and severe aortic stenosis with mean gradient of 53 mmHg and aortic valve area of 0.47. Review of Systems Const: Reports: diaphoresis; Denies: fever(s) Eyes: Denies: change in vision ENMT: Denies: throat pain Card: Reports: palpitations Resp: Reports: dyspnea GI: Denies: abdominal pain, nausea or vomiting Musc: Denies: neck pain Neuro: Denies: headache(s) Medications/Allergies Home Medications Medication Instructions Recorded Confirmed Last Taken Type fluticasone 250 mcg-salmeterol 50 1 inh INHALATION BID #60 each 11/25/19 01/24/22 01/12/20 13:00 Rx mcg/dose blistr powdr for inhalation ([facility]) hydrocodone 5 mg-acetaminophen 325 1 tab PO Q8H 10 Days #30 tab 12/15/20 01/24/22 1 Day Ago Rx mg tablet ~01/23/22 albuterol sulfate 90 mcg/actuation See Rx Instructions .ROUTE 06/09/21 01/24/22 1 Day Ago Rx aerosol inhaler .COMPLEX #8.5 g ~01/23/22 celecoxib 200 mg capsule See Rx Instructions .ROUTE 07/26/21 01/24/22 2 Months Ago Rx .COMPLEX #60 cap ~11/24/21 Allergies Allergy/AdvReac Type Severity Reaction Status Date / Time Sulfa (Sulfonamide Allergy Unknown Unknown Verified 04/21/21 15:22 Antibiotics) Current Medications Generic Name Dose Route Start Last Admin Trade Name Freq PRN Reason Stop Dose Admin Hydrocodone Bitart/Acetaminophen 1 tab 01/24/22 12:45 01/24/22 12:37 Hydrocodone-Acetaminophen 5-325 Mg Tablet PO 1 tab Q8H SORAIDA Administration Aspirin 81 mg 01/24/22 09:00 01/24/22 09:12 Aspirin 81 Mg Chew Tablet PO 81 mg DAILY SORAIDA Administration Enoxaparin Sodium 120 mg 01/24/22 14:00 01/24/22 14:58 Enoxaparin 120 Mg/0.8 Ml Syringe SUBCUT 120 mg Q12H SORAIDA Administration Diltiazem HCl 100 mg/ Dextrose 100 mls @ 0 mls/hr 01/24/22 02:15 01/24/22 13:31 IV Infused .Q0M SORAIDA Titration Titrate Insulin Human Lispro 0 unit 01/24/22 08:00 01/24/22 12:38 Insulin Lispro 100 Unit/1 Ml SUBCUT 4 unit WM&BEDTIME SORAIDA Administration Protocol Ipratropium [place] 0.5 mg 01/24/22 08:00 01/24/22 16:32 Ipratropium 0.5 Mg/2.5 Ml Neb INHALATION 0.5 mg Q4H.RESPIRATORY SORAIDA Administration Levalbuterol HCl 1.25 mg 01/24/22 12:00 01/24/22 16:32 Levalbuterol 1.25 Mg/3 Ml Neb INHALATION 1.25 mg Q4H.RESPIRATORY SORAIDA Administration Pantoprazole Sodium 40 mg 01/24/22 09:00 01/24/22 09:[address] 40 Mg Tablet PO 40 mg DAILY SORAIDA Administration PFSH Acute PFSH: Medical History Aortic stenosis COPD (chronic obstructive pulmonary disease) Diabetes 1.5, managed as type 2 History of colon cancer HTN (hypertension) Osteoarthritis Tobacco abuse Surgical History Status post laparoscopic colectomy Family History Father Cancer COLON CA Social History Smoking and tobacco status: current every day smoker cigarettes Packs smoked per day: 1 Marital status: / Current occupational status: employed Current occupation: [employer] Vitals/I&O/Wt Last Vital Signs Temp 98.1 F 01/24/22 15:47 Pulse 90 01/24/22 16:40 Resp 20 H 01/24/22 16:36 BP 133/79 01/24/22 15:47 Pulse Ox 99 01/24/22 16:36 01/24/22 01/24/22 01/24/22 06:59 14:59 22:59 Intake Total 2650.000 / 2650.000 1127.840 / 1127.840 Output Total 400 / 400 Balance 2250.000 / 2250.000 1127.840 / 1127.840 Weight last 48 hrs Weight 280 lb Physical Exam Narrative: GENERAL: Patient is alert, awake and oriented x3. [] NECK: No jugular vein distension. [] HEENT: No cyanosis. No icterus. No pallor. [] HEART: Irregularly irregular, patient has grade 4/6 systolic murmur LUNGS: Bilateral wheezing ABDOMEN: Soft CENTRAL NERVOUS SYSTEM: Grossly nonfocal. [] EXTREMITIES: Lower extremities with 1+ edema bilaterally. Pulses palpable in the lower extremities, both dorsalis pedis and posterior tibial. [] Data : 01/25/22 04:01 01/25/22 04:01 Micro: Microbiology 01/24/22 01:45 Blood Culture - Preliminary Blood SPECIMEN COLLECTED 01/24/22 01:40 Blood Culture - Preliminary Blood SPECIMEN COLLECTED A&P Assessment and plan (1) Atrial fibrillation with rapid ventricular response: Status: Acute (2) Acute respiratory failure with hypoxia: Status: Acute (3) HTN (hypertension): Status: Acute (4) Aortic stenosis: Status: Acute (5) Diabetes 1.5, managed as type 2: Status: Acute (6) COPD (chronic obstructive pulmonary disease): Status: Acute Plan Patient has presented with respiratory distress. He is in A. fib with RVR and also has critical aortic stenosis with mean gradient of 53 mmHg and aortic valve area of 0.47 cm. LV systolic function has decreased significantly. Patient needs valve replacement. I had a discussion with patient and family that we can try transferring him to a tertiary care center which they want. Patient will need right and left heart cath prior to the valve replacement Low-dose of metoprolol. Will recommend gentle diuresis with IV Lasix 20 mg Anticoagulation for atrial fibrillation. If heart rate stays high, can consider amiodarone Transfer to ICU Coding Level of Care Code Acute Land Leases [employer] Rent[employer] Manager for Chg Fwd Diagnoses Atrial fibrillation with rapid ventricular response I48.91 Acute respiratory failure with hypoxia J96.01 HTN (hypertension) I10 Aortic stenosis I35.0 Diabetes 1.5, managed as type 2 E13.9 COPD (chronic obstructive pulmonary disease) J44.9
[2022-01-24 17:29] LABS: Glucose Point of Care 299 mg/dL (70-110)
--- NOTE | 2022-01-24 17:52 | PC.NURSE ---
Arrived from [facility]
--- NOTE | 2022-01-24 17:53 | PC.NURSE ---
patient transferred to ICU for increased monitoring
[2022-01-24] MEDS: atorvastatin 40 mg Tablet PO (21:06)
[2022-01-24 22:11] LABS: Glucose Point of Care 193 mg/dL (70-110)
[2022-01-24] MEDS: metoprolol tartrate 50 mg Tablet PO (22:11)
[2022-01-24] MEDS: FUROsemide 10 mg/mL SDV 2mL 20 MG IVP (22:11)
[2022-01-25] VITALS (38 sets, daily range): BP systolic 100–159; BP diastolic 72–117; PULSE 86–160; RESP 16–32; TEMP 36.2–37.1; O2SAT 89–99
[2022-01-25] MEDS: cefTRIAXone 1,000 MG in sodium chloride 0.9% (plus) 50 ML 100 MG IV (02:18)
[2022-01-25] MEDS: enoxaparin 120 mg/0.8 mL Syringe SUBCUT ×2 (02:18→13:54)
[2022-01-25] MEDS: ipratropium 0.5 mg/2.5 mL Neb INHALATION ×3 (03:23→11:54)
[2022-01-25] MEDS: levalbuterol 1.25 mg/3 mL Neb INHALATION ×3 (03:23→11:54)
[2022-01-25 04:19] LABS: Basophils % 0.1 %; Hematocrit 36.1 % (42.0-52.0); Hemoglobin 11.2 g/dL (11.7-16.6); Lymphocytes # 1.3 10^3/uL (0.8-4.8); Lymphocytes % 6.4 %; Mean Corpuscular Hemoglobin 28.2 pg (28.0-34.0); Mean Corpuscular Volume 90.9 fl (80-94); Mean Platelet Volume 11.4 fL (7.4-10.4); Monocytes # 1.2 10^3/uL (0.2-0.9); Monocytes % 5.9 %; Neutrophils # 17.19 10^3/uL (1.8-7.7); Neutrophils % 86.9 %; Nucleated Red Blood Cells % 0 %; Platelet Count 216 10^3/cmm (130-400); Red Blood Count 3.97 10^6/uL (4.1-5.3); White Blood Count 19.8 10^3/uL (4.0-10.0)
[2022-01-25 04:37] LABS: Anion Gap 14.7 (5-19); Blood Urea Nitrogen 28 mg/dL (8-23); Calcium 9.1 mg/dL (8.5-10.5); Carbon Dioxide 23 mmol/L (22-29); Chloride 100 mmol/L (98-107); Glomerular Filtration Rate 113.9 mL/min (90-130); Glucose 143 mg/dL (65-115); Osmolality Calculated 284 mOsm/kg (285-295); Potassium 4.7 mmol/L (3.5-5.1); Sodium 133 mmol/L (136-145)
[2022-01-25] MEDS: HYDROcodone-acetaminophen 5-325 mg Tablet 1 TAB PO ×2 (05:02→12:27)
--- NOTE | 2022-01-25 06:55 | PC.NURSE ---
Bedside report complete with JOHN Corrigan. Regular Coke noted on bedside table. Pt diabetic and admitted for A-fib. Discussed with patient the effects of caffeine on heart conditions/a-fib. Pt verbalized understanding.
--- NOTE | 2022-01-25 08:20 | PC.NURSE ---
Friends/ family brought patient large [employer] coffee.
[2022-01-25 08:24] LABS: Glucose Point of Care 159 mg/dL (70-110)
[2022-01-25] MEDS: insulin lispro 100 unit/1 mL SUBCUT (08:55)
[2022-01-25] MEDS: metoprolol tartrate 50 mg Tablet PO (08:56)
[2022-01-25] MEDS: aspirin 81 mg Chew Tablet PO (08:56)
[2022-01-25] MEDS: predniSONE 20 mg Tablet 40 MG PO (08:56)
[2022-01-25] MEDS: azithromycin 250 mg Tablet 500 MG PO (08:56)
[2022-01-25] MEDS: pantoprazole DR 40 mg Tablet PO (08:56)
--- NOTE | 2022-01-25 09:04 | PC.CHAP ---
Pastoral Care Encounter/Spiritual Assessment Type of Contact [] Declined eyelet operator visit [] Patient/Family/Request visit [] Outpatient visit [] Follow-up visit [] Physician referral [] Code/Alert [x] Routine visit [] Staff referral [] Actively dying [] Patient sleeping [] Family support [] [] Out of room [] Palliative care [] [x] Receiving care in room [] Pre-surgical visit [] Trauma [] Long length of stay [x] ICU visit [x] Other: Relational/Emotional Strength [] Patient feels connected with others/family/visitors/staff [] Distress [] Loneliness/isolation [] Abandonment Spirituality of Patient [] Person of Jo-Ann [] Attends Gnosticism of their Jo-Ann [] Believes in Prayer [] Reads Bible or Faith materials [] There are Spiritual issues to be addressed Nut Grader Interventions [x] Prayer [] Active listening [] Non-anxious presence [] Spiritual/emotional support [] Crisis/trauma care [] Spiritual counseling [] Bereavement support [] Provided bereavement packet [] Provided Bible/devotional materials [] Provided toy/stuffed animal, coloring book to patient or family member [] Provided Communion [] Anointing/[place] [] Salvation [x] Completed spiritual assessment [] Other: Impact on Illness or Injury [] Angry [] Fearful [] Anxious [] Often cries [] Exhaustion [] Unable to work [] Unable to attend pentecostalism [] Unable to walk/stand [] Unable to read [] Unable to drive [] Unable to eat/drink [] Unable to sleep [] Unable to be with family [] Patient intubated [] Other: Summary patient had visitors in room... Time spent with patient 5 min
--- NOTE | 2022-01-25 09:58 | P.TS_ITS ---
Transfer Summary Providers Date of Admission: 01/24/22 02:09 Date of Discharge/Transfer: 01/25/22 Attending Provider at Admission: Merlin Calloway DO Attending Provider at Transfer: Gina Ramsey MD Primary Care Provider: Betzy Novoa MD Transfer Plans: Anticipated date of transfer: 01/25/22 . Diagnoses at Discharge Discharge Diagnosis (1) Atrial fibrillation with rapid ventricular response: Status: Acute (2) Bronchopneumonia: Status: Acute (3) Acute respiratory failure with hypoxia: Status: Acute (4) Aortic stenosis: Status: Acute (5) Diabetes 1.5, managed as type 2: Status: Acute Reason for Visit Reason for Visit Chest Pain Hospital Course Hospital Course 60-year-old male who presented to the hospital with chief complaint of worsening shortness of breath. Patient stated that he was experiencing shortness of breath on minimal activities for couple weeks such after walking 5 to 10 feet at home. He decided to come to the hospital when he started experiencing chest discomfort with his symptoms. Patient stated that last year when he had stent placed in his heart he was recommended aortic valve replacement which he refused at that time. He rated his chest pain on admission 7 out of 10 which he described as sharp pain, intermittent, it was not associated with diaphoresis, nausea, vomiting. His chest pain resolved spontaneously. In the ER he was diagnosed with left-sided pneumonia, white count 19,000, he is requiring 2 L of oxygen, he went into A. fib RVR for which he was put on Cardizem drip, next day echo revealed EF 30 to 35% and severe aortic valve stenosis findings, for closer monitoring he was transferred to ICU however his oxygen requirement did not worsen. He only got 20 mg of p.o. Lasix, judicious use of diuretics because of severe aortic valve stenosis. His hemoglobin is 11.2. He is not septic.Considering high D-dimer CTA chest and venous Doppler of lower extremities requested, no signs of clot DVT or PE. Cardizem drip has been turned off because of low EF detected on the echo, I have started him on metoprolol 50 mg twice daily, kept him on therapeutic dose of Lovenox, his baseline troponin was 79, 2nd hr troponin 81.35, 6-hour troponin 80.45, BNP 4400, CK407, During his hospitalization he has received aspirin, atorvastatin, ceftriaxone and azithromycin, DuoNeb treatment along steroids, steroids are most likely the cause of leukocytosis, he has been afebrile, oxygen, and has not worsened, for his A. fib RVR he is getting metoprolol, currently on therapeutic dose of Lovenox Mean aortic valve gradient 53, aortic valve area 0.49 cm COVID antigen negative Case has been discussed with the family, they are in agreement for transfer to [facility] therapist rrt has accepted the transfer Physical Exam Narrative: Pleasant male Morbidly obese S1, S2 variable Heart rate fluctuating between 90-1 07 Distended abdomen however it is soft no signs of peritonitis No active signs of decompensated heart failure No signs of edema of legs I do not appreciate JVD EOMI, PERRLA Nonfocal neuro exam Crackles noted at the base of the lungs Abdominal scar noted TS Data Studies Completed and Pending Pending at discharge Category Date Time Status Blood Culture Stat Lab 01/24/22 01:45 Results COVID [SARS Covid-2 Antigen] Routine Lab 01/25/22 08:06 Uncollected Labs from last 24 hours 01/25/22 01/25/22 01/25/22 09:14 07:59 04:01 WBC RBC Hgb Hct MCV MCH MCHC RDW Plt Count MPV Neut % (Auto) Lymph % (Auto) [place] % (Auto) Eos % (Auto) Baso % (Auto) Neut # (Auto) Lymph # (Auto) [place] # (Auto) Eos # (Auto) Baso # (Auto) Nucleated RBC % (auto) Nucleated RBCs # Sodium 133 L Potassium 4.7 Chloride 100 Carbon Dioxide 23 Anion Gap 14.7 BUN 28 H Creatinine 0.7 GFR Calculation 113.9 Glucose 143 H POC Glucose 159 H Calculated Osmolality 284 L Calcium 9.1 SARS-CoV-2 Ag (Rapid) Pending 01/25/22 01/24/22 01/24/22 04:01 22:07 17:25 WBC 19.8 H RBC 3.97 L Hgb 11.2 L Hct 36.1 L MCV 90.9 MCH 28.2 MCHC 31.0 RDW 15.0 Plt Count 216 MPV 11.4 H Neut % (Auto) 86.9 Lymph % (Auto) 6.4 [place] % (Auto) 5.9 Eos % (Auto) 0.0 Baso % (Auto) 0.1 Neut # (Auto) 17.19 H Lymph # (Auto) 1.3 [place] # (Auto) 1.2 H Eos # (Auto) 0.0 Baso # (Auto) 0.0 Nucleated RBC % (auto) 0 Nucleated RBCs # 0.0 Sodium Potassium Chloride Carbon Dioxide Anion Gap BUN Creatinine GFR Calculation Glucose POC Glucose 193 H 299 H Calculated Osmolality Calcium SARS-CoV-2 Ag (Rapid) 01/24/22 11:00 WBC RBC Hgb Hct MCV MCH MCHC RDW Plt Count MPV Neut % (Auto) Lymph % (Auto) [place] % (Auto) Eos % (Auto) Baso % (Auto) Neut # (Auto) Lymph # (Auto) [place] # (Auto) Eos # (Auto) Baso # (Auto) Nucleated RBC % (auto) Nucleated RBCs # Sodium Potassium Chloride Carbon Dioxide Anion Gap BUN Creatinine GFR Calculation Glucose POC Glucose 181 H Calculated Osmolality Calcium SARS-CoV-2 Ag (Rapid) Completed Studies During Hospitalization Category Date Time Status CT angio chest PE protcl [id number] Urgent Cat Scan 01/24/22 00:16 Completed XR chest 1V portable [id number] Stat Exams 01/23/22 23:35 [place] [id number] Routine Ultrasound 01/24/22 13:56 Completed CV. echo complete* [id number] Routine Ultrasound 01/24/22 02:14 Completed Laboratory Last Values WBC 19.8 10^3/uL (4.0-10.0) H 01/25/22 04:01 RBC 3.97 10^6/uL (4.1-5.3) L 01/25/22 04:01 Hgb 11.2 g/dL (11.7-16.6) L 01/25/22 04:01 Hct 36.1 % (42.0-52.0) L 01/25/22 04:01 MCV 90.9 fl (80-94) 01/25/22 04:01 MCH 28.2 pg (28.0-34.0) 01/25/22 04:01 MCHC 31.0 g/dL (30.0-36.0) 01/25/22 04:01 RDW 15.0 % (12.1-15.1) 01/25/22 04:01 Plt Count 216 10^3/cmm (130-400) 01/25/22 04:01 MPV 11.4 fL (7.4-10.4) H 01/25/22 04:01 Neut % (Auto) 86.9 % 01/25/22 04:01 Lymph % (Auto) 6.4 % 01/25/22 04:01 [place] % (Auto) 5.9 % 01/25/22 04:01 Eos % (Auto) 0.0 % 01/25/22 04:01 Baso % (Auto) 0.1 % 01/25/22 04:01 Neut # (Auto) 17.19 10^3/uL (1.8-7.7) H 01/25/22 04:01 Lymph # (Auto) 1.3 10^3/uL (0.8-4.8) 01/25/22 04:01 [place] # (Auto) 1.2 10^3/uL (0.2-0.9) H 01/25/22 04:01 Eos # (Auto) 0.0 10^3/uL (0.0-0.8) 01/25/22 04:01 Baso # (Auto) 0.0 10^3/uL (0.0-0.1) 01/25/22 04:01 Nucleated RBC % (auto) 0 % 01/25/22 04:01 Nucleated RBCs # 0.0 /100WBC 01/25/22 04:01 PT 17.10 SECONDS (12.1-14.9) H 01/23/22 23:33 INR 1.36 (0.8-1.2) H 01/23/22 23:33 APTT 43.6 SECONDS (23.9-36.7) H 01/23/22 23:33 D-Dimer 2.27 ug/mIFEU (0-0.59) H 01/23/22 23:33 Sodium 133 mmol/L (136-145) L 01/25/22 04:01 Potassium 4.7 mmol/L (3.5-5.1) 01/25/22 04:01 Chloride 100 mmol/L (98-107) 01/25/22 04:01 Carbon Dioxide 23 mmol/L (22-29) 01/25/22 04:01 Anion Gap 14.7 (5-19) 01/25/22 04:01 BUN 28 mg/dL (8-23) H 01/25/22 04:01 Creatinine 0.7 mg/dL (0.7-1.2) 01/25/22 04:01 GFR Calculation 113.9 mL/min (90-130) 01/25/22 04:01 Glucose 143 mg/dL (65-115) H 01/25/22 04:01 POC Glucose 159 mg/dL (70-110) H 01/25/22 07:59 Calculated Osmolality 284 mOsm/kg (285-295) L 01/25/22 04:01 Lactic Acid 1.4 mmol/L (0.5-2.2) 01/24/22 01:40 Calcium 9.1 mg/dL (8.5-10.5) 01/25/22 04:01 Magnesium 2.0 mg/dL (1.7-2.3) 01/24/22 00:09 Total Bilirubin 0.7 mg/dL (0.15-1.2) 01/23/22 23:33 AST 29 U/L (0-40) 01/23/22 23:33 ALT 21 U/L (0-41) 01/23/22 23:33 Alkaline Phosphatase 61 IU/L (40-130) 01/23/22 23:33 Creatine Kinase 407 U/L (39-308) H* 01/23/22 23:33 Troponin T Baseline 79 ng/L (0-15) H 01/24/22 00:09 Troponin T 120 Minute 81.35 ng/L (0-15) H 01/24/22 01:45 Delta Troponin T 2.35 ABS# (0-10) 01/24/22 01:45 Troponin T Hi Sens 6Hr 80.45 ng/L (0-15) H 01/24/22 04:52 Troponin T Hi Sens 6Hr Delta 1.45 ng/L (0-12) 01/24/22 04:52 NT-Pro-B Natriuret Pep 4400 pg/mL (0-125) H 01/23/22 23:33 Total Protein 6.3 g/dL (6.6-8.7) L 01/23/22 23:33 Albumin 3.9 g/dL (3.5-5.2) 01/23/22 23:33 Globulin 2.4 g/dL (1.3-4.6) 01/23/22 23:33 TSH 0.99 uIU/mL (0.27-4.20) 01/24/22 00:09 Free T4 1.03 ng/dL (0.82-1.77) 01/24/22 00:09 Urine Color Yellow (Yellow) 01/24/22 05:00 Urine Appearance Clear (CLEAR) 01/24/22 05:00 Urine pH 6.5 (5-7) 01/24/22 05:00 Ur Specific [place] 1.015 (1.005-1.030) 01/24/22 05:00 Urine Protein 1+ (Negative) H 01/24/22 05:00 Urine Glucose (UA) Norm (Normal) 01/24/22 05:00 Urine Ketones Negative (Negative) 01/24/22 05:00 Urine Blood 3+ (Negative) H 01/24/22 05:00 Urine Nitrate Negative (Negative) 01/24/22 05:00 Urine Bilirubin 1+ (Negative) H 01/24/22 05:00 Urine Urobilinogen 8 mg/dL (Negative) H 01/24/22 05:00 Ur Leukocyte Esterase Negative (Negative) 01/24/22 05:00 Urine RBC 0-4 /hpf (0-2) H 01/24/22 05:00 Urine WBC 0-4 /hpf (0-5) H 01/24/22 05:00 Ur Squamous Epith Cells 0-4 /hpf (0-5) H 01/24/22 05:00 Amorphous Sediment Not Reportable 01/24/22 05:00 Urine Bacteria Trace /hpf (NONE) 01/24/22 05:00 Urine Mucus 1+ /hpf 01/24/22 05:00 Radiology Impressions Chest X-Ray 01/23/22 23:35 IMPRESSION: 1. Large left upper lobe lesion. Favor bronchopneumonia. 2. Radiographic follow-up is indicated to exclude mass and document resolution. Chest CTA 01/24/22 00:16 IMPRESSION: 1. Left upper lobe bronchopneumonia with small parapneumonic effusion. 2. Negative for pulmonary artery embolism. 3. Incidental finding of a large right adrenal gland mass which contains macroscopic calcifications and low density areas which are measuring lipid attenuation. 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 Adrenal protocol CT scan recommended in 6 months. Recent Clincial Data Last Vital Signs Temp 98.8 F 01/25/22 07:30 Pulse 107 H 01/25/22 09:30 Resp 19 H 01/25/22 09:30 BP 144/102 01/25/22 09:30 Pulse Ox 95 01/25/22 09:30 Vital Signs Temp Pulse Resp BP Pulse Ox 01/25/22 09:30 107 H 19 H 144/102 95 01/25/22 09:00 115 H 23 H 157/100 95 01/25/22 08:30 120 H 24 H 111/84 99 01/25/22 08:00 99 20 H 122/99 01/25/22 07:37 92 18 96 01/25/22 07:30 98.8 F 90 22 H 131/100 89 L 01/25/22 07:00 98 22 H 100/75 98 01/25/22 06:00 90 17 107/80 99 01/25/22 05:30 92 22 H 122/92 95 01/25/22 05:00 90 24 H 119/72 96 01/25/22 04:30 90 20 H 125/87 98 01/25/22 04:00 92 26 H 140/85 01/25/22 03:30 92 32 H 127/96 99 01/25/22 03:24 86 18 98 01/25/22 03:00 106 H 21 H 127/86 92 01/25/22 02:30 87 19 H 103/82 95 01/25/22 02:00 88 16 114/90 91 01/25/22 01:30 93 19 H 135/97 96 01/25/22 01:00 96 17 132/92 98 01/25/22 00:30 104 H 22 H 127/80 98 01/25/22 00:00 95 18 127/96 01/24/22 23:30 88 16 134/86 97 01/24/22 23:00 110 H 29 H 114/82 95 01/24/22 22:30 99 36 H 110/88 98 01/24/22 22:00 97 22 H 139/89 96 Intake & Output/Weight 01/23/22 01/24/22 01/25/22 01/26/22 06:59 06:59 06:59 06:59 Intake Total 2650.000 / 2650.000 1417.840 / 1417.840 400 / 400 Output Total 400 / 400 650 / 650 Balance 2250.000 / 2250.000 767.840 / 767.840 400 / 400 Weight 127.006 kg Additional Data from Hospital Stay MEASUREMENTS? (Male / Female) Normal Values ?2D ECHO ?LV Diastolic Diameter PLAX? 3.9 cm? 4.2 - 5.9 / 3.9 - 5.3 cm ?LV Systolic Diameter PLAX ? 3.2 cm?LV Chamber Size ? 4.5 cm?IVS Diastolic Thickness ? 1.2 cm? 0.6 - 1.0 / 0.6 - 0.9 cm ?IVS Systolic Thickness? 1.4 cm?LVPW Diastolic Thickness? 1.2 cm? 0.6 - 1.0 / 0.6 - 0.9 cm ?LVPW Systolic Thickness ? 1.4 cm?RV Chamber Size ? 3.6 cm?LVOT Diameter ? 2.0 cm?LV Ejection Fraction 2D Teich ? ? 34.9 %?LV Ejection Fraction MOD 2C ? ? ? 23.0 %?LV Ejection Fraction 2C AL? 23.3 %?LA Diameter ? 4.2 cm?LA Width? 4.0 cm?LA Height ? 4.9 cm?RA Width? 4.0 cm?RA Height ? 4.5 cm?Aorta at Sinotubular Diameter ? ? 2.2 cm?IVC Diameter? 3.1 cm?M-MODE ?Aortic Annulus Diameter ? 2.9 cm?LA Ao Ratio MM? 1.7 ?MV E Point Septal Separation? ? ? 0.9 cm?DOPPLER ?AV Peak Velocity? 443.8 cm/s?LVOT Peak Velocity? 74.3 cm/s ?AV Area Cont Eq vti ? 0.5 cm squared ?AV Area Cont Eq pk? 0.5 cm squared ?MV Area PHT ? 4.4 cm squared ?MV E' Velocity? 74.5 cm/s ?Mitral E to MV E' Ratio ? 17.3?Mitral E to LV E' Lateral Ratio ? 15.7?Mitral E to LV E' Septal Ratio? ? 19.5?TR Peak Velocity? 262.3 cm/s?TR Peak Gradient? 27.5 mmHg ?TR Mean Velocity? 191.9 cm/s?TR Mean Gradient? 16.9 mmHg ?TR Velocity Time Integral ? 74.4 cm ?TV Peak E Velocity? 69.0 cm/s ?Right Atrial Pressure ? 15.0 mmHg ?Pulmonary Artery Systolic Pressu? 42.5 mmHg ?PV Peak Velocity? 76.0 cm/s ?RV Acceleration Time? 0.1 s ?RV Ejection Time? 0.4 s ?RV AcT/ET ? 0.3 ?FINDINGS ?Left Ventricle ?Normal left ventricular size. LV systolic function is severely ?reduced with EF of 30-35%.? Regional wall motion abnormalities ?cannot be accurately assessed because of poor ultrasonic ?windows. ?Right Ventricle ?Grossly normal ?Right Atrium ?The right atrium is normal in size.? RA pressure is elevated ?Left Atrium ?The left atrium is dilated ?Mitral Valve ?Mitral valve is thickened without significant stenosis or ?prolapse.? There is mild to moderate mitral regurgitation. ?Aortic Valve ?Aortic valve is severely calcified and thickened.? Severe aortic ?stenosis with aortic valve area of 0.49 cm squared and mean gradient 53 ?mmHg. ?Tricuspid Valve ?Structurally normal tricuspid valve without significant ?stenosis.? Mild to moderate tricuspid regurgitation.? Pulmonary ?artery systolic pressure is normal. ?Pulmonic Valve ?Not well visualized ?Pericardium ?Normal pericardium without effusion. ?Aorta ?Normal ascending aorta dimension. ?IVC ?CONCLUSIONS ?Technically limited quality echocardiogram because of poor ?ultrasonic windows ?LV systolic function is severely reduced with EF of 30 to 35%.? ?Regional wall motion abnormalities cannot be assessed because of ?poor ultrasonic windows. ?Mitral valve is thickened.? Mild to moderate mitral ?regurgitation. ?Aortic valve is severely calcified and thickened.? Severe aortic ?stenosis with aortic valve area of 0.49 cm.? Mean gradient of 53 ?mmHg. ?Mild to moderate tricuspid regurgitation. ?Compared to prior echocardiogram from 11/05/2019, LV systolic ?function has significantly decreased now and aortic stenosis has ?progressed. CR (CHEST, ) 01/24/2022 12:12 AM RADIATION DOSE METRICS: Total DLP (mGy-cm): 618.72 FINDINGS: Pulmonary arteries: Normal. No pulmonary emboli. Aorta: Unremarkable. No aortic aneurysm. No aortic dissection. Lungs: Large geographic area of consolidation in the posterior left upper lobe with air bronchograms. Minor patchy ground-glass foci within right upper lobe. Mild diffuse bronchial wall thickening. No significant bronchiectasis. Negative for peripheral honeycombing. Pleural spaces: Small volume left pleural effusion. Negative for pneumothorax. Heart: Left ventricle is mildly enlarged. Negative for pericardial effusion. Lymph nodes: Enlarged, calcified subcarinal lymph nodes in the mediastinum. Nonenlarged calcified right paratracheal lymph nodes in the mediastinum. Adrenal glands: Mass of the right adrenal gland with circumscribed margins. Stippled calcifications within the mass. Mass dimensions 5.4 cm x 3.9 cm in the transaxial plane. Areas of the mass are measuring low-attenuation, including fat density. Bones/joints: Unremarkable. No acute fracture. Soft tissues: Unremarkable. CT/CT angio chest PE protcl [id number] IMPRESSION: 1. Left upper lobe bronchopneumonia with small parapneumonic effusion. 2. Negative for pulmonary artery embolism. 3. Incidental finding of a large right adrenal gland mass which contains macroscopic calcifications and low density areas which are measuring lipid attenuation. 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 Adrenal protocol CT scan recommended in 6 month Vitals Last Vital Signs Temp 98.8 F 01/25/22 07:30 Pulse 107 H 01/25/22 09:30 Resp 19 H 01/25/22 09:30 BP 144/102 01/25/22 09:30 Pulse Ox 95 01/25/22 09:30 TS Medications Medications Acetaminophen (Acetaminophen 325 Mg Tablet) 650 mg PO Q6H PRN PRN Reason: Mild/Mod Pain Or Temp >/= 101 Hydrocodone Bitart/Acetaminophen (Hydrocodone-Acetaminophen 5-325 Mg Tablet) 1 tab PO Q8H [facility] Last Admin: 01/25/22 05:02 Dose: 1 tab Documented by: Aspirin (Aspirin 81 Mg Chew Tablet) 81 mg PO DAILY [facility] Last Admin: 01/25/22 08:56 Dose: 81 mg Documented by: Atorvastatin Calcium (Atorvastatin 40 Mg Tablet) 40 mg PO BEDTIME [facility] Last Admin: 01/24/22 21:06 Dose: 40 mg Documented by: Azithromycin (Azithromycin 250 Mg Tablet) 500 mg PO DAILY [facility]; Protocol Last Admin: 01/25/22 08:56 Dose: 500 mg Documented by: Dextrose (Dextrose 50% Syringe 50 Ml) 25 ml IVP ONCE PRN; Protocol PRN Reason: hypoglycemia protocol Dextrose (Dextrose 50% Syringe 50 Ml) 50 ml IVP PRN PRN; Protocol PRN Reason: hypoglycemia protocol Enoxaparin Sodium (Enoxaparin 120 Mg/0.8 Ml Syringe) 120 mg SUBCUT Q12H [facility] Last Admin: 01/25/22 02:18 Dose: 120 mg Documented by: Glucagon (Glucagon 1 Mg/Ml Inj 1 Ml) 1 mg IM ONCE PRN; Protocol PRN Reason: Adult Acute Hypoglycemia Prot. Ceftriaxone Sodium 1,000 mg/ (Sodium Chloride) 50 mls @ 100 mls/hr IV Q24H [facility]; Protocol Last Infusion: 01/25/22 03:00 Dose: Infused Documented by: Dextrose (D5w) 500 mls @ 100 mls/hr IV ONCE PRN; Protocol PRN Reason: Adult Acute Hypoglycemia Prot Diltiazem HCl 100 mg/ Dextrose 100 mls @ 0 mls/hr IV .Q0M [facility] Last Titration: 01/24/22 13:31 Dose: Infused Documented by: Insulin Human Lispro (Insulin Lispro 100 Unit/1 Ml) 0 unit SUBCUT WM&BEDTIME [facility]; Protocol Last Admin: 01/25/22 08:55 Dose: 2 unit Documented by: Ipratropium [place] (Ipratropium 0.5 Mg/2.5 Ml Neb) 0.5 mg INHALATION Q4H.RESPIRATORY [facility] Last Admin: 01/25/22 07:37 Dose: 0.5 mg Documented by: Levalbuterol HCl (Levalbuterol 1.25 Mg/3 Ml Neb) 1.25 mg INHALATION Q4H.RESPIRATORY [facility] Last Admin: 01/25/22 07:37 Dose: 1.25 mg Documented by: Metoprolol Tartrate (Metoprolol Tartrate 50 Mg Tablet) 50 mg PO BID@0900,2100 [facility] Last Admin: 01/25/22 08:56 Dose: 50 mg Documented by: Ondansetron HCl (Ondansetron 2 Mg/Ml Sdv 2 Ml) 4 mg IVP Q8H PRN PRN Reason: vomiting, or N/V if npo Pantoprazole Sodium (Pantoprazole Dr 40 Mg Tablet) 40 mg PO DAILY [facility] Last Admin: 01/25/22 08:56 Dose: 40 mg Documented by: Prednisone (Prednisone 20 Mg Tablet) 40 mg PO DAILY [facility] Last Admin: 01/25/22 08:56 Dose: 40 mg Documented by: Discontinued Medications Hydrocodone Bitart/Acetaminophen (Hydrocodone-Acetaminophen 5-325 Mg Tablet) 1 tab PO ONCE ONE Stop: 01/24/22 04:31 Last Admin: 01/24/22 04:52 Dose: 1 tab Documented by: Diltiazem HCl (Diltiazem 5 Mg/Ml Sdv 5 Ml) 20 mg IVP ONCE ONE Stop: 01/23/22 23:36 Last Admin: 01/23/22 23:48 Dose: Not Given Documented by: Diltiazem HCl (Diltiazem 5 Mg/Ml Sdv 5 Ml) 15 mg IVP ONCE ONE Stop: 01/23/22 23:45 Last Admin: 01/23/22 23:48 Dose: 15 mg Documented by: Furosemide (Furosemide 20 Mg Tablet) 20 mg PO DAILY@0800 [facility] Furosemide (Furosemide 10 Mg/Ml Sdv 2ml) 20 mg IVP ONCE ONE Stop: 01/24/22 21:23 Last Admin: 01/24/22 22:11 Dose: 20 mg Documented by: Heparin Sodium (Porcine) (Heparin 5,000 Unit/Ml Inj 1 Ml) 0 unit IV PRN PRN; Protocol PRN Reason: Heparin weight-base protocol Last Admin: 01/24/22 03:53 Dose: 6,500 unit Documented by: Sodium Chloride (Sodium Chloride 0.9%) 1,000 mls @ 999 mls/hr IV .Q1H1M ONE Stop: 01/24/22 00:35 Last Infusion: 01/24/22 02:22 Dose: Infused Documented by: Diltiazem HCl 100 mg/ Dextrose 100 mls @ 0 mls/hr IV .Q0M STA; Protocol Stop: 01/24/22 00:03 Last Titration: 01/24/22 05:26 Dose: Infused Documented by: Ceftriaxone Sodium 1,000 mg/ (Sodium Chloride) 50 mls @ 100 mls/hr IV ONCE ONE; Protocol Stop: 01/24/22 01:31 Last Infusion: 01/24/22 02:36 Dose: Infused Documented by: Sodium Chloride (Sodium Chloride 0.9%) 1,000 mls @ 999 mls/hr IV .Q1H1M ONE Stop: 01/24/22 02:58 Last Infusion: 01/24/22 03:40 Dose: Infused Documented by: Azithromycin 500 mg/ Sodium (Chloride) 250 mls @ 250 mls/hr IV Q24H [facility]; Protoc ol Last Infusion: 01/24/22 05:26 Dose: Infused Documented by: calcium gluconate 0.9% NaCL (Calcium Gluconate 0.9% Nacl) 1 gm in 50 mls @ 50 mls/hr IV ONCE ONE Stop: 01/24/22 03:13 Last Admin: 01/24/22 04:58 Dose: Not Given Documented by: Sodium Chloride (Sodium Chloride 0.9%) 1,000 mls @ 100 mls/hr IV .Q10H [facility] Last Infusion: 01/24/22 08:28 Dose: Infused Documented by: Heparin Sodium/Sodium Chloride (Heparin Drip) 25,000 unit in 500 mls @ 0 mls/hr IV .Q0M [facility]; Protocol Last Titration: 01/24/22 09:00 Dose: Infused Documented by: calcium gluconate 0.9% NaCL (Calcium Gluconate 0.9% Nacl) 1 gm in 50 mls @ 50 mls/hr IV ONCE ONE Stop: 01/24/22 05:59 Last Infusion: 01/24/22 05:15 Dose: Infused Documented by: Iohexol (Iohexol 350 Mg/Ml 100 Ml Btl) 0 ml IV ONCE ONE Stop: 01/24/22 00:54 Last Admin: 01/24/22 00:53 Dose: 80 ml Documented by: Ipratropium [place] (Ipratropium 0.5 Mg/2.5 Ml Neb) 0.5 mg INHALATION Q4H [facility] Last Admin: 01/24/22 04:33 Dose: 0.5 mg Documented by: Labetalol HCl (Labetalol 5 Mg/Ml Sdv 20ml) 10 mg IVP ONCE ONE Stop: 01/24/22 14:31 Last Admin: 01/24/22 17:22 Dose: Not Given Documented by: Methylprednisolone (Methylprednisolone (Depo) 80 Mg/Ml Inj 1 Ml) 80 mg IM ONCE ONE Stop: 01/24/22 03:36 Last Admin: 01/24/22 03:43 Dose: Not Given Documented by: Methylprednisolone Sodium Succinate (Methylprednisolone Sod Succ 125 Mg/2 Ml Inj) 60 mg IVP Q8H [facility] Last Admin: 01/24/22 04:53 Dose: 60 mg Documented by: Metoprolol Tartrate (Metoprolol Tartrate 25 Mg Tablet) 25 mg PO BID@0900,2100 [facility] Last Admin: 01/24/22 09:12 Dose: 25 mg Documented by: Metoprolol Tartrate (Metoprolol Tartrate 25 Mg Tablet) 25 mg PO ONCE ONE Stop: 01/24/22 12:20 Last Admin: 01/24/22 12:37 Dose: 25 mg Documented by: Morphine Sulfate (Morphine 4 Mg/Ml Sdv 1 Ml) 4 mg IVP ONCE ONE Stop: 01/24/22 03:12 Last Admin: 01/24/22 03:15 Dose: 4 mg Documented by: Ondansetron HCl (Ondansetron 2 Mg/Ml Sdv 2 Ml) 4 mg IVP ONCE ONE Stop: 01/24/22 03:12 Last Admin: 01/24/22 03:15 Dose: 4 mg Documented by: Allergies Sulfa (Sulfonamide Antibiotics) Allergy (Unknown, Verified 04/21/21 15:22) Unknown Home Medications fluticasone 250 mcg-salmeterol 50 mcg/dose blistr powdr for inhalation (Eloisa Christianson) 1 inh INHALATION BID #60 each 11/25/19 [Rx Confirmed 01/24/22] hydrocodone 5 mg-acetaminophen 325 mg tablet 1 tab PO Q8H 10 Days #30 tab 12/15/20 [Rx Confirmed 01/24/22] albuterol sulfate 90 mcg/actuation aerosol inhaler See Rx Instructions .ROUTE .COMPLEX #8.5 g 06/09/21 [Rx Confirmed 01/24/22] celecoxib 200 mg capsule See Rx Instructions .ROUTE .COMPLEX #60 cap 07/26/21 [Rx Confirmed 01/24/22] Discharge Plan Discharge Patient Disposition: Home Condition: Fair Prescriptions: New aspirin [Children's Aspirin] 81 mg Tablet,Chewable 81 mg PO DAILY Qty: 10 0RF azithromycin 250 mg Tablet 500 mg PO DAILY Qty: 6 0RF atorvastatin 40 mg Tablet 40 mg PO BEDTIME Qty: 7 0RF metoprolol tartrate 50 mg Tablet 50 mg PO BID@0900,2100 Qty: 1 0RF enoxaparin 120 mg/0.8 mL Syringe 120 mg SUBCUT Q12H Qty: 0.8 0RF Continued fluticasone propion-salmeterol [Wixela Inhub] 250-50 mcg/dose blister with device 1 inh INHALATION BID Qty: 60 5RF hydrocodone-acetaminophen 5-325 mg tablet 1 tab PO Q8H 10 Days Qty: 30 0RF albuterol sulfate 90 mcg/actuation HFA aerosol inhaler See Rx Instructions .ROUTE .COMPLEX Qty: 8.5 2RF Dose Instruction: INHALE TWO PUFFS BY MOUTH FOUR TIMES DAILY NEEDED Rx Instructions: INHALE TWO PUFFS BY MOUTH FOUR TIMES DAILY NEEDED Discontinued celecoxib 200 mg capsule See Rx Instructions .ROUTE .COMPLEX Qty: 60 2RF Dose Instruction: TAKE ONE CAPSULE BY MOUTH TWICE DAILY Rx Instructions: TAKE ONE CAPSULE BY MOUTH TWICE DAILY Discharge Orders: Discharge Order (Routine); Ordered 01/25/22 Ordered By: Gina Ramsey Patient Instructions: Opioid Safety Transfer Attestations Time Spent in Transfer Care: less than 30 min Quality Metrics Clinical Quality Measures [ No reported AMI, CVA or VTE this stay] Coding Level of Care Code Acute Dry Cleaning Manager for g Fwd Diagnoses Atrial fibrillation with rapid ventricular response I48.91 Bronchopneumonia J18.0 Acute respiratory failure with hypoxia J96.01 Aortic stenosis I35.0 Diabetes 1.5, managed as type 2 E13.9
[2022-01-25 10:17] LABS: SARS Covid-2 Antigen Negative (Negative)
--- NOTE | 2022-01-25 10:37 | PM.PN ---
Subjective Subjective: Patient is stable. He is still short of breath Vitals/I&O/Wt Last Vital Signs Temp 98.8 F 01/25/22 07:30 Pulse 107 H 01/25/22 09:30 Resp 19 H 01/25/22 09:30 BP 144/102 01/25/22 09:30 Pulse Ox 95 01/25/22 09:30 01/24/22 01/25/22 01/25/22 22:59 06:59 14:59 Intake Total 240 / 1367.840 50 / 1417.840 400 / 400 Output Total 650 / 650 Balance 240 / 1367.840 -600 / 767.840 400 / 400 Weight last 48 hrs Weight 280 lb Physical Exam Narrative: GENERAL: Patient is alert, awake and oriented x3. [] NECK: No jugular vein distension. [] HEENT: No cyanosis. No icterus. No pallor. [] HEART: Irregularly irregular, patient has grade 4/6 systolic murmur LUNGS: Bilateral wheezing ABDOMEN: Soft CENTRAL NERVOUS SYSTEM: Grossly nonfocal. [] EXTREMITIES: Lower extremities with 1+ edema bilaterally. Pulses palpable in the lower extremities, both dorsalis pedis and posterior tibial. [] Data : 01/25/22 04:01 01/25/22 04:01 Micro: Microbiology 01/24/22 01:45 Blood Culture - Preliminary Blood NEGATIVE TO DATE 01/24/22 01:40 Blood Culture - Preliminary Blood NEGATIVE TO DATE A&P Assessment and plan (1) Atrial fibrillation with rapid ventricular response: Status: Acute (2) Acute respiratory failure with hypoxia: Status: Acute (3) HTN (hypertension): (4) Aortic stenosis: Status: Acute (5) Diabetes 1.5, managed as type 2: (6) COPD (chronic obstructive pulmonary disease): Plan Patient has presented with respiratory distress. He is in A. fib with RVR and also has critical aortic stenosis with mean gradient of 53 mmHg and aortic valve area of 0.47 cm. LV systolic function has decreased significantly. Patient needs valve replacement. Patient needs urgent valve replacement. Patient will need right and left heart cath prior to the valve replacement. He wants to be transferred to [place] for aortic valve replacement. He has bed available and will be transferred today. Low-dose of metoprolol. Gentle diuresis. Thank you for involving us with care of this patient. Please call with questions Attestations Medical Necessity Statement*: Care expected to cross 2 midnights. 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
--- NOTE | 2022-01-25 11:28 | P.MISC_ITS ---
Miscellaneous Note Purpose of Documentation: I conferred with Mr. Olivier and his family at bedside. I discussed the worsening aortic stenosis, decreasing left ventricular performance, and overall decreasing exercise tolerance. He currently remains in atrial fibrillation with tachycardia. He also has a depressive left upper lobe pneumonia which he is receiving antibiotic therapy. He has a expiratory wheeze. Apparently, his son knows someone who is associated with [facility] in [place] and they have requested that all of his information be sent to that facility to consider transfer and subsequent treatment. Indeed, I concur with my colleague, Dr. Hollingsworth that the aortic valve stenosis will need to be addressed in an expeditious fashion given his worsening overall condition, LV performance, arrhythmia, and decreasing aortic orifice. It does not appear at this time that he is agreeable to consider surgical correction at our location, though we are available for further conversations should he or his family change their mind.
--- NOTE | 2022-01-25 13:10 | P.PN_ITS ---
Subjective Subjective: Patient is endorsing feeling slightly better Is also requirement is 2 L No active wheezing or crackles No overnight events He was given Lasix yesterday 650 cc urine output Detox at [facility] Family member has contacted someone at the [facility] and preferred to have him transferred to that facility, appreciate Dr. Hutchinson's evaluation Patient heart rate is getting worse today, I will keep esmolol drip on board if we need in next few hours, for now I am giving him labetalol IV push We have faxed documents to diabetes center already, nurse has been updated Made 2 phone calls this morning Vitals/I&O/Wt Last Vital Signs Temp 98.8 F 01/25/22 07:30 Pulse 124 H 01/25/22 12:00 Resp 20 H 01/25/22 12:00 BP 126/98 01/25/22 12:00 Pulse Ox 93 01/25/22 12:00 01/24/22 01/25/22 01/25/22 22:59 06:59 14:59 Intake Total 240 / 1367.840 50 / 1417.840 400 / 400 Output Total 650 / 650 Balance 240 / 1367.840 -600 / 767.840 400 / 400 Weight last 48 hrs Weight 127.006 kg Physical Exam Narrative: Patient is laying in saline follow position on 2 L nasal cannula No active signs of heart failure No active chest pain Currently on 2 L A. fib RVR Blood pressure stable EOMI, PERRLA Nonfocal neuro exam Family at the bedside Data : 01/25/22 04:01 01/25/22 04:01 Micro: Microbiology 01/24/22 01:45 Blood Culture - Preliminary Blood NEGATIVE TO DATE 01/24/22 01:40 Blood Culture - Preliminary Blood NEGATIVE TO DATE A&P Assessment and plan (1) Atrial fibrillation with rapid ventricular response: Status: Acute (2) Bronchopneumonia: Status: Acute (3) Aortic stenosis: Status: Acute Plan A. fib RVR we will start esmolol drip it is prudent to keep heart rate below 110 to avoid/pulm edema with severe aortic valve stenosis Continue therapeutic dose of Lovenox Left-sided pneumonia currently on 2 L nasal cannula White count 19,000 Venous Doppler and CTA chest ruled out PE Today I have contacted [facility], awaiting response [facility] has declined his case Start nicotine patch Start esmolol drip Continue therapeutic Lovenox We will try to get back in touch with [facility], will try other facilities Patient is full code Continue consistent carb cardiac diet Attestations Medical Necessity Statement*: Continue ICU management Time Spent in Patient Care: 20mins 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
[2022-01-25] MEDS: esmolol drip 2,500 MG/250 ML PREMIX 19.05 MG IV (13:58)
[2022-01-25 16:24] LABS: Glucose Point of Care 136 mg/dL (70-110)
--- NOTE | 2022-01-25 16:35 | PC.NURSE ---
Report called to [facility] CICU. Report given to Lavelle Red RN. All questions answered.
[2022-01-25] MEDS: esmolol drip 2,500 MG/250 ML PREMIX 95.26 MG IV ×2 (17:02→17:04)
--- NOTE | 2022-01-25 17:15 | PC.NURSE ---
Addendum entered by Malou De La Torre RN 01/25/22 17:27: Two extra bags of Esmolol scanned and sent with ambulance crew, so patient would have enough. Original Note: Ambulance crew here. Pt transported out of facility. All belongings with pt.
[2022-01-25 18:30] LABS: Glucose Point of Care 148 mg/dL (70-110)
== END 2022-01-25 17:15 | disposition short-term general hospital (02) | DRG 308 ==
LOC: ER 01-24 00:06 → CSU 01-24 02:10 → ICU 01-24 17:50
PROVIDERS: Admitting Provider Internal Medicine; Emergency Provider Emergency Medicine; PCP Family Medicine; Visit Provider Internal Medicine
DX: I48.91 Unspecified atrial fibrillation (principal); J18.9 Pneumonia, unspecified organism; J96.01 Acute respiratory failure with hypoxia; J44.0 Chronic obstructive pulmonary disease with (acute) lower respiratory infection; I50.20 Unspecified systolic (congestive) heart failure; E87.1 Hypo-osmolality and hyponatremia; Z68.41 Body mass index [BMI] 40.0-44.9, adult; I11.0 Hypertensive heart disease with heart failure; I35.0 Nonrheumatic aortic (valve) stenosis; E13.9 Other specified diabetes mellitus without complications; Z85.038 Personal history of other malignant neoplasm of large intestine; F17.210 Nicotine dependence, cigarettes, uncomplicated; N28.89 Other specified disorders of kidney and ureter; M19.09 Primary osteoarthritis, other specified site; G89.29 Other chronic pain; E78.1 Pure hyperglyceridemia; E66.9 Obesity, unspecified; Z90.49 Acquired absence of other specified parts of digestive tract; Z79.51 Long term (current) use of inhaled steroids; Z79.891 Long term (current) use of opiate analgesic; I25.10 Atherosclerotic heart disease of native coronary artery without angina pectoris; Z95.5 Presence of coronary angioplasty implant and graft; I42.9 Cardiomyopathy, unspecified; F12.10 Cannabis abuse, uncomplicated
CPT/HCPCS: 36415; 36416; 71045; 71275; 80048; 80053; 81001; 82550; 82962; 83605; 83735; 83880; 84439; 84443; 84484; 85025; 85378; 85610; 85730; 87040; 87426; 93005; 93306; 93970; 94640; 96365; 96372; 96375; 96376; 99291; J0456; J0610; J0696; J1644; J1650; J1815; J1940; J2270; J2405; J2930; J3490; J7030; J7050; J7512; J7614; J7644; Q0144; Q9967

== ENCOUNTER → 2022-02-10 08:39 | Outpatient (BNVA) | payer BC, MEDICAID, SELFPAY | PROVIDERS: PCP Family Medicine; Visit Provider Nurse Practitioner Acute Care | DX: Z95.2 Presence of prosthetic heart valve (principal) | CPT/HCPCS: 85610 ==

== ENCOUNTER → 2022-02-15 10:34 | Outpatient (BNVA) | payer BC, MEDICAID, SELFPAY | PROVIDERS: PCP Family Medicine; Visit Provider Nurse Practitioner Acute Care | DX: Z95.2 Presence of prosthetic heart valve (principal) | CPT/HCPCS: 85610 ==

== ENCOUNTER → 2022-03-01 10:15 | Outpatient (BNVA) | payer BC, MEDICAID, SELFPAY | PROVIDERS: PCP Family Medicine; Visit Provider Nurse Practitioner Acute Care | DX: Z95.2 Presence of prosthetic heart valve (principal) | CPT/HCPCS: 85610 ==

== ENCOUNTER → 2022-03-08 14:51 | Outpatient (BNVA) | payer BC, MEDICAID, SELFPAY | PROVIDERS: PCP Family Medicine; Visit Provider Nurse Practitioner Acute Care | DX: Z79.01 Long term (current) use of anticoagulants (principal) | CPT/HCPCS: 85610 ==

== ENCOUNTER → 2022-03-10 12:40 | Outpatient (BNVA) | payer BC, MEDICAID, SELFPAY | PROVIDERS: PCP Family Medicine; Visit Provider Internal Medicine Cardiovascular Disease | DX: Z09 Encounter for follow-up examination after completed treatment for conditions other than malignant neoplasm (principal); I48.91 Unspecified atrial fibrillation; I35.0 Nonrheumatic aortic (valve) stenosis; E13.9 Other specified diabetes mellitus without complications; J44.9 Chronic obstructive pulmonary disease, unspecified; I10 Essential (primary) hypertension; Z95.3 Presence of xenogenic heart valve; I25.10 Atherosclerotic heart disease of native coronary artery without angina pectoris; I42.9 Cardiomyopathy, unspecified; F17.210 Nicotine dependence, cigarettes, uncomplicated; Z79.84 Long term (current) use of oral hypoglycemic drugs | CPT/HCPCS: 99214 ==

== ENCOUNTER → 2022-03-15 11:43 | Outpatient (BNVA) | payer BC, MEDICAID, SELFPAY | PROVIDERS: PCP Family Medicine; Visit Provider Family Medicine | DX: Z95.3 Presence of xenogenic heart valve (principal); E13.9 Other specified diabetes mellitus without complications; I10 Essential (primary) hypertension | CPT/HCPCS: 80053; 80061; 83036; 84443; 85025; 85610 ==

== ENCOUNTER → 2022-03-18 13:44 | Outpatient (BNVA) | payer BC, MEDICAID, SELFPAY | PROVIDERS: PCP Family Medicine; Visit Provider Internal Medicine | DX: Z79.01 Long term (current) use of anticoagulants (principal) ==

== ENCOUNTER → 2022-03-22 17:09 | Outpatient (BNVA) | payer BC, MEDICAID, SELFPAY | PROVIDERS: PCP Family Medicine; Visit Provider Family Medicine | DX: R60.9 Edema, unspecified (principal); E13.9 Other specified diabetes mellitus without complications; I48.91 Unspecified atrial fibrillation; Z95.3 Presence of xenogenic heart valve | CPT/HCPCS: 85610 ==

== ENCOUNTER → 2022-03-28 12:23 | Outpatient (BNVA) | payer BC, MEDICAID, SELFPAY | PROVIDERS: PCP Family Medicine; Visit Provider Family Medicine | DX: R60.9 Edema, unspecified (principal); E13.9 Other specified diabetes mellitus without complications; Z95.3 Presence of xenogenic heart valve | CPT/HCPCS: 80048; 83036; 85610 ==

== ENCOUNTER → 2022-03-31 11:25 | Outpatient (BNVA) | payer BC, MEDICAID, SELFPAY | PROVIDERS: PCP Family Medicine; Visit Provider Family Medicine | DX: I48.91 Unspecified atrial fibrillation (principal) | CPT/HCPCS: 85610 ==

== ENCOUNTER → 2022-04-07 13:31 | Outpatient (BNVA) | payer BC, MEDICAID, SELFPAY | PROVIDERS: PCP Family Medicine; Visit Provider Family Medicine | DX: Z95.3 Presence of xenogenic heart valve (principal) | CPT/HCPCS: 85610 ==

== ENCOUNTER → 2022-04-14 14:18 | Outpatient (BNVA) | payer BC, MEDICAID, SELFPAY | PROVIDERS: PCP Family Medicine; Visit Provider Family Medicine | DX: Z95.3 Presence of xenogenic heart valve (principal) | CPT/HCPCS: 85610 ==

== ENCOUNTER → 2022-04-21 13:24 | Outpatient (BNVA) | payer BC, MEDICAID, SELFPAY | PROVIDERS: PCP Family Medicine; Visit Provider Family Medicine | DX: Z95.3 Presence of xenogenic heart valve (principal) | CPT/HCPCS: 85610 ==

== ENCOUNTER → 2022-04-28 13:16 | Outpatient (BNVA) | payer BC, MEDICAID, SELFPAY | PROVIDERS: PCP Family Medicine; Visit Provider Family Medicine | DX: Z95.3 Presence of xenogenic heart valve (principal) | CPT/HCPCS: 85610 ==

== ENCOUNTER → 2022-05-12 14:38 | Outpatient (BNVA) | payer BC, MEDICAID, SELFPAY | PROVIDERS: PCP Family Medicine; Visit Provider Family Medicine | DX: Z95.3 Presence of xenogenic heart valve (principal) | CPT/HCPCS: 85610 ==

== ENCOUNTER → 2022-05-26 11:37 | Outpatient (BNVA) | payer BC, MEDICAID, SELFPAY | PROVIDERS: PCP Family Medicine; Visit Provider Family Medicine | DX: Z95.3 Presence of xenogenic heart valve (principal) | CPT/HCPCS: 85610 ==

== ENCOUNTER → 2022-06-02 13:33 | Outpatient (BNVA) | payer BC, MEDICAID, SELFPAY | PROVIDERS: PCP Family Medicine; Visit Provider Family Medicine | DX: Z95.3 Presence of xenogenic heart valve (principal) | CPT/HCPCS: 85610 ==

== ENCOUNTER → 2022-06-13 13:20 | Outpatient (BNVA) | payer BC, MEDICAID, SELFPAY | PROVIDERS: PCP Family Medicine; Visit Provider Family Medicine | DX: Z95.3 Presence of xenogenic heart valve (principal) | CPT/HCPCS: 85610 ==

== ENCOUNTER 2022-08-11 09:52 | Outpatient (CLI) | payer BC, MEDICAID, SELFPAY ==
--- NOTE | 2022-08-11 10:15 | USCV_ITS ---
Rolly Olivier Age: 62 Gender: M : 1960 Exam Date: 08/11/2022 10:13 Ordering Phys: Otto Hollingsworth M.D ([email or web address]) Technologist: Albaro Hernandez Exam Location: [facility] [place] Indication: SOB BP: 142 / 74 HR: 64 Rhythm: Sinus Technical Quality: Adequate MEASUREMENTS (Male / Female) Normal Values 2D ECHO LV Diastolic Diameter PLAX 3.8 cm 4.2 - 5.9 / 3.9 - 5.3 cm LV Systolic Diameter PLAX 2.1 cm IVS Diastolic Thickness 1.2 cm 0.6 - 1.0 / 0.6 - 0.9 cm IVS Systolic Thickness 1.3 cm LVPW Diastolic Thickness 1.9 cm 0.6 - 1.0 / 0.6 - 0.9 cm LVPW Systolic Thickness 2.1 cm LVOT Diameter 2.0 cm LV Ejection Fraction 2D Teich 75.3 % LV Ejection Fraction MOD 2C 61.0 % LV Ejection Fraction 2C AL 61.0 % LA Diameter 4.7 cm LA Width 3.9 cm LA Height 5.2 cm RA Width 3.8 cm RA Height 4.6 cm Aorta at Sinotubular Diameter 1.6 cm IVC Diameter 2.0 cm M-MODE Aortic Annulus Diameter 2.6 cm LA Ao Ratio MM 1.8 MV E Point Septal Separation 0.8 cm DOPPLER AV Peak Velocity 267.0 cm/s LVOT Peak Velocity 122.0 cm/s AV Area Cont Eq vti 1.5 cm squared AV Area Cont Eq pk 1.4 cm squared MV Peak Velocity 141.0 cm/s MV Area PHT 4.9 cm squared Mitral E to A Ratio 1.3 MV E' Velocity 56.0 cm/s Mitral E to MV E' Ratio 18.6 Mitral E to LV E' Lateral Ratio 17.1 Mitral E to LV E' Septal Ratio 20.8 TR Peak Velocity 387.6 cm/s TR Peak Gradient 60.1 mmHg TR Mean Velocity 290.6 cm/s TR Mean Gradient 40.3 mmHg TR Velocity Time Integral 115.5 cm Right Atrial Pressure 3.0 mmHg Pulmonary Artery Systolic Pressu 63.1 mmHg PV Peak Velocity 146.7 cm/s RV Acceleration Time 0.1 s RV Ejection Time 0.3 s RV AcT/ET 0.4 FINDINGS Left Ventricle Left ventricle is normal in size. LV systolic function is normal with EF of 55-60%. No regional wall motion abnormalities seen. Right Ventricle Normal in size and function Right Atrium Normal in size Left Atrium Dilated Mitral Valve Moderate mitral annular calcification. Moderate mitral regurgitation. Aortic Valve Bioprosthetic aortic valve. DVI is 0.43. Mean gradient across the aortic valve is 14mmHg. No significant aortic regurgitation Tricuspid Valve Trace tricuspid regurgitation. Insufficient TR jet to calculate RVSP Pulmonic Valve Not well visualized Pericardium Normal Aorta Normal in size IVC Appears to be normal CONCLUSIONS LV systolic function is normal with EF of 55-60% Left atrial enlargement Moderate mitral regurgitation Bioprosthetic aortic valve. Normally functioning with DVI of 0.43 Trace tricuspid regurgitation Compared to prior echocardiogram from 01/24/2022, patient now has a normally functioning bioprosthetic aortic valve and LV systolic function has improved significantly and is normal now. Otto Hollingsworth MD (Electronically Signed) Final Date: 25 August 2022 10:13 S
== END 2022-08-11 09:53 | disposition home or self-care (01) ==
LOC: RAD 09:52
PROVIDERS: PCP Family Medicine; Visit Provider Internal Medicine
DX: R06.02 Shortness of breath (principal); I08.1 Rheumatic disorders of both mitral and tricuspid valves; Z95.2 Presence of prosthetic heart valve
CPT/HCPCS: 93306

== ENCOUNTER → 2022-11-07 09:49 | Outpatient (BNVA) | payer BC, MEDICAID, SELFPAY | PROVIDERS: PCP Family Medicine; Visit Provider Family Medicine | DX: Z95.3 Presence of xenogenic heart valve (principal) | CPT/HCPCS: 85610 ==

== ENCOUNTER → 2022-12-02 10:03 | Outpatient (BNVA) | payer BC, MEDICAID, SELFPAY | PROVIDERS: PCP Family Medicine; Visit Provider Family Medicine | DX: Z95.3 Presence of xenogenic heart valve (principal) | CPT/HCPCS: 85610 ==

== ENCOUNTER → 2023-01-03 11:54 | Outpatient (BNVA) | payer BC, MEDICAID, SELFPAY | PROVIDERS: PCP Family Medicine; Visit Provider Family Medicine | DX: I10 Essential (primary) hypertension (principal); E13.9 Other specified diabetes mellitus without complications; I48.91 Unspecified atrial fibrillation; Z12.5 Encounter for screening for malignant neoplasm of prostate | CPT/HCPCS: 80053; 80061; 83036; 84443; 85025; 85610; G0103 ==

== ENCOUNTER → 2023-01-25 17:02 | Outpatient (BNVA) | payer BC, MEDICAID, SELFPAY | PROVIDERS: PCP Family Medicine; Visit Provider Family Medicine | DX: R30.0 Dysuria (principal) | CPT/HCPCS: 81000 ==

== ENCOUNTER → 2023-05-05 11:17 | Outpatient (BNVA) | payer OTHER, SELFPAY | PROVIDERS: PCP Family Medicine; Visit Provider Family Medicine | DX: Z95.3 Presence of xenogenic heart valve (principal) | CPT/HCPCS: 85610 ==

== ENCOUNTER → 2023-05-23 09:55 | Outpatient (BNVA) | payer SELFPAY | PROVIDERS: PCP Family Medicine; Visit Provider Family Medicine | DX: Z95.3 Presence of xenogenic heart valve (principal) | CPT/HCPCS: 85610 ==

== ENCOUNTER → 2023-07-17 14:20 | Outpatient (BNVA) | payer MEDICARE, MEDICAID, SELFPAY | PROVIDERS: PCP Family Medicine; Visit Provider Family Medicine | DX: E13.9 Other specified diabetes mellitus without complications (principal); I10 Essential (primary) hypertension; I48.91 Unspecified atrial fibrillation; I42.9 Cardiomyopathy, unspecified | CPT/HCPCS: 80053; 80061; 83036; 84443; 85025; 85610 ==

== ENCOUNTER → 2023-08-16 14:07 | Outpatient (BNVA) | payer MEDICARE, MEDICAID, SELFPAY | PROVIDERS: PCP Family Medicine; Visit Provider Family Medicine | DX: I48.91 Unspecified atrial fibrillation (principal) | CPT/HCPCS: 85610 ==

== ENCOUNTER → 2023-08-30 13:30 | Outpatient (BNVA) | payer MEDICARE, MEDICAID, SELFPAY | PROVIDERS: PCP Family Medicine; Visit Provider Family Medicine | DX: I48.91 Unspecified atrial fibrillation (principal) | CPT/HCPCS: 85610 ==

== ENCOUNTER → 2023-11-15 10:57 | Outpatient (BNVA) | payer MEDICARE, MEDICAID, SELFPAY | PROVIDERS: PCP Family Medicine; Visit Provider Family Medicine | DX: I48.91 Unspecified atrial fibrillation (principal) | CPT/HCPCS: 85610 ==

== ENCOUNTER → 2024-03-13 14:51 | Outpatient (BNVA) | payer MEDICARE, MEDICAID, SELFPAY | PROVIDERS: PCP Family Medicine; Visit Provider Family Medicine | DX: I48.91 Unspecified atrial fibrillation (principal) | CPT/HCPCS: 85610 ==

== ENCOUNTER → 2024-06-06 14:29 | Outpatient (BNVA) | payer MEDICARE, MEDICAID, SELFPAY | PROVIDERS: PCP Family Medicine; Visit Provider Family Medicine | DX: I48.91 Unspecified atrial fibrillation (principal) | CPT/HCPCS: 85610 ==

== ENCOUNTER → 2024-06-25 14:03 | Outpatient (BNVA) | payer MEDICARE, MEDICAID, SELFPAY | PROVIDERS: PCP Nurse Practitioner Family; Visit Provider Nurse Practitioner Family | DX: I48.91 Unspecified atrial fibrillation (principal); I10 Essential (primary) hypertension; E13.9 Other specified diabetes mellitus without complications; R97.20 Elevated prostate specific antigen [PSA] | CPT/HCPCS: 80053; 80061; 83036; 84153; 84443; 85025; 85610 ==

== ENCOUNTER → 2024-07-24 13:47 | Outpatient (BNVA) | payer MEDICARE, MEDICAID, SELFPAY | PROVIDERS: PCP Nurse Practitioner Family; Visit Provider Nurse Practitioner Family | DX: I48.91 Unspecified atrial fibrillation (principal) | CPT/HCPCS: 85610 ==

== ENCOUNTER → 2024-08-12 15:22 | Outpatient (BNVA) | payer MEDICARE, MEDICAID, SELFPAY | PROVIDERS: PCP Nurse Practitioner Family; Visit Provider Internal Medicine Cardiovascular Disease | DX: I25.10 Atherosclerotic heart disease of native coronary artery without angina pectoris (principal); Z95.3 Presence of xenogenic heart valve; I48.91 Unspecified atrial fibrillation; F17.210 Nicotine dependence, cigarettes, uncomplicated; Z79.01 Long term (current) use of anticoagulants; I10 Essential (primary) hypertension | CPT/HCPCS: 99214 ==

== ENCOUNTER 2024-09-04 21:59 | Emergency (ER) | payer MEDICARE, MEDICAID, SELFPAY ==
[2024-09-04] VITALS (8 sets, daily range): BP systolic 165–183; BP diastolic 91–113; PULSE 65–77; RESP 20; TEMP 36.9; O2SAT 95–98; BMI 37.6
--- NOTE | 2024-09-04 22:18 | ED_ITS ---
HPI - Back Pain/Injury General: Chief Complaint: Back Pain/Injury Stated Complaint: lower back pain Time Seen by Provider: 09/04/24 22:08 Source: patient Mode of arrival: ambulatory Limitations: no limitations History of Present Illness: Patient is a 64-year-old male with a past medical history of colon cancer who presents the emergency department complaining of severe lumbar pain beginning today. Patient denies any trauma, states a few days ago he backed into a garage door a couple of times, but otherwise no specific inciting event to note. He has been taking hydrocodone for his pain, states this has not been touching it. Denies any bowel or bladder incontinence, does state that his left groin does feel somewhat numb. Denies any distal paralysis or paresthesias down his lower extremities. Does not report any fevers, trauma, unexplained weight loss, neurological symptoms, IVDU, steroid use. He states he has never had pain like this before, it does not radiate down his legs does radiate somewhat up towards his left shoulder. MD elicited complaint: back pain Pertinent past history: cancer Onset (ago): hour(s) Timing: constant Severity: severe Quality: sharp Location: lumbar spine Radiation: none Exacerbating factors: movement Associated symptoms: Deny abdominal pain, difficulty walking, fecal i ncontinence, fever(s) or syncope Treatments prior to arrival: prescription analgesics Related Data Previous Rx's Medication Instructions Recorded metoprolol succinate 50 mg 50 mg PO DAILY #90 tabs 04/22/24 tablet,extended release 24 hr albuterol sulfate 90 mcg/actuation See Rx Instructions .Route 06/25/24 aerosol inhaler (Ventolin HFA) .COMPLEX #18 grams fluticasone 250 mcg-salmeterol 50 1 inh inhalation BID #60 ea 06/25/24 mcg/dose blistr powdr for inhalation (Advair Diskus) losartan 100 mg tablet 100 mg PO DAILY #30 tabs 06/25/24 metformin 500 mg tablet See Rx Instructions .Route 06/25/24 .COMPLEX #60 tabs warfarin 6 mg tablet 6 mg PO DAILY #30 tabs 06/25/24 amiodarone 200 mg tablet See Rx Instructions .Route 08/28/24 .COMPLEX #90 tabs methocarbamol 750 mg tablet 750 mg PO Q8H 5 days #15 tabs 09/05/24 Allergies Allergy/AdvReac Type Severity Reaction Status Date / Time apixaban [From Eliquis] Allergy Unknown headache Verified 05/23/24 15:10 Sulfa (Sulfonamide Allergy Unknown Unknown Verified 05/23/24 15:10 Antibiotics) Review of Systems General: Reports: 10 or more systems reviewed and unremarkable except in HPI and below Const: Reports: other (denies trauma); Denies: fever(s), change in weight or night sweats Card: Denies: chest pain, lightheadedness or syncope Resp: Denies: dyspnea GI: Denies: abdominal pain or fecal incontinence : Denies: urinary incontinence Musc: Reports: back pain; Denies: neck pain or extremity pain Skin/Breast: Denies: rash or skin pain Neuro: Reports: sensory changes and other (Reporting some left groin numbness); Denies: headache(s), weakness in extremities, lack of coordination, difficulty walking, frequent falls or involuntary movements PFSH ED PFSH: Medical History Cardiomyopathy CAD (coronary artery disease) Osteoarthritis History of colon cancer COPD (chronic obstructive pulmonary disease) Tobacco abuse HTN (hypertension) Aortic stenosis Diabetes 1.5, managed as type 2 Surgical History History of aortic valve replacement with bioprosthetic valve Status post laparoscopic colectomy Family History Father Cancer COLON CA Social History Smoking and tobacco/nicotine status: current every day tobacco/nicotine user cigarettes Packs smoked per day: 1 Second hand smoke exposure: No Alcohol intake: unknown Substance/Drug Use: unknown Adopted: No Caregiver/support person: No Lives independently: Yes Household members: none Housing: House Marital status: / service: No Current occupational status: retired Do you think of yourself as: Straight/Heterosexual Current gender identity: Male Physical Exam Const: COMMON NORMALS: patient oriented x3, no limitations, healthy appearing and alert OTHER: Appears uncomfortable Resp: COMMON NORMALS: normal respiratory effort, No retractions, No use of accessory muscles and clear to auscultation bilaterally AUSCULTATION: clear to auscultation bilaterally Cardio: COMMON NORMALS: regular rate, regular rhythm, S1 normal heart sound present and S2 normal heart sound present RATE: regular rate RHYTHM: regular rhythm HEART SOUNDS: S1 normal heart sound present and S2 normal heart sound present Back/Pelvis: OTHER: Normal visual examination. Mild reproducible tenderness to palpation of the lumbar spine. No paracervical, parathoracic, or paralumbar tenderness to palpa tion. Full active range of motion, though significant or pain reported with this. Positive straight leg raise testing on the left Extremity: COMMON NORMALS: normal to inspection and full ROM Neuro: COMMON NORMALS: patient oriented x3, moves all extremities, no focal motor deficits, no sensory deficits noted, deep tendon reflexes 2+ bilaterally and gait normal SENSORIUM/ORIENTATION: Yes alert OTHER: L3, L4, L5, and S1 nerve sensations intact. Normal knee jerk and ankle jerk reflexes. Skin: COMMON NORMALS: no rashes or lesions noted GENERAL SKIN EXAM: no rashes or lesions noted Course Vital Signs: Vital signs: Vital Signs Temperature 98.4 F 09/04/24 22:08 Pulse Rate 67 09/05/24 00:00 Respiratory Rate 20 H 09/04/24 22:08 Blood Pressure 167/96 09/05/24 00:00 Pulse Oximetry 96 09/05/24 00:00 Oxygen Delivery Me thod Room Air 09/04/24 23:25 MDM - Back Pain/Injury Medical Decision Making Patient presented with acute onset left lower back pain that began suddenly and radiated down his left leg. He did have a history of cancer, wanted to rule out any metastasis with lumbar CT and this was negative for any acute findings, was evidence of degenerative disc disease and degenerative joint disease. I do believe that his pain primarily at this time to be more sciatic in nature, as he endorsed significant relief after steroid and muscle relaxer here in the emergency department. States his pain get all the way down to a 3/10 and felt good to go home. Will treat with muscle relaxer at home and have him follow-up with primary care for any further evaluation. He already had Kinross at home that he will alternate with ibuprofen. Return precautions given. Labs Radiology Impressions Lumbar Spine CT 09/04/24 22:31 IMPRESSION: 1. There is a 5.4 x 3.9 x 4.3 cm right adrenal mass, with multiple small calcifications, which is a nonspecific finding and appears grossly similar to the prior CT of the abdomen from 01/24/2022. 2. Multilevel degenerative disc and joint disease of the lumbar spine as detailed level by level above, worst at L5-S1, as outlined. 3. No pathologic fractures are identified. All radiology interpretation(s) finalized by discharge Discharge Plan Discharge Patient Disposition: Home Clinical Impression: Musculoskeletal back pain Condition: Stable Prescriptions: New methocarbamol 750 mg tablet 750 mg PO Q8H 5 Days Qty: 15 0RF No Action metformin 500 mg tablet See Rx Instructions .ROUTE .COMPLEX Qty: 60 2RF Dose Instruction: TAKE ONE TABLET BY MOUTH TWICE DAILY needs labs Rx Instructions: TAKE ONE TABLET BY MOUTH TWICE DAILY needs labs warfarin 6 mg tablet 6 mg PO DAILY Qty: 30 2RF losartan 100 mg tablet 100 mg PO DAILY Qty: 30 2RF albuterol sulfate [Ventolin HFA] 90 mcg/actuation HFA aerosol inhaler See Rx Instructions .ROUTE .COMPLEX Qty: 18 2RF Dose Instruction: INHALE TWO PUFFS BY MOUTH FOUR TIMES DAILY NEEDED Rx Instructions: INHALE TWO PUFFS BY MOUTH FOUR TIMES DAILY NEEDED fluticasone propion-salmeterol [Advair Diskus] 250-50 mcg/dose blister with device 1 inh inhalation BID Qty: 60 2RF metoprolol succinate 50 mg tablet extended release 24 hr 50 mg PO DAILY Qty: 90 1RF Rx Instructions: Patient MUST keep appointment in Aug. to get further refills amiodarone 200 mg tablet See Rx Instructions .ROUTE .COMPLEX Qty: 90 3RF Dose Instruction: TAKE ONE TABLET BY MOUTH EVERY DAY Rx Instructions: TAKE ONE TABLET BY MOUTH EVERY DAY Discharge Orders: Discharge ED (Routine); Ordered 09/05/24 Ordered By: Garry Simon Referrals: Anabelle Mahan FNP-C [Primary Care Provider] - Patient Instructions: Muscle Spasm (ED) Activity Restrictions/Additional Instructions: Take muscle relaxers as prescribed. Alternate your Kinross and ibuprofen. Apply heat to your low back. Gentle range of motion exercises. See attached patient instructions for further education. Follow-up with primary care. 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
--- NOTE | 2024-09-04 22:31 | CTR_ITS ---
PROCEDURE INFORMATION: Exam: CT Lumbar Spine Without Contrast Exam date and time: 09/04/2024 11:17 PM Age: 64 years old Clinical indication: Low back pain; Additional info: Severe lumbar pain, HX of cancer TECHNIQUE: Imaging protocol: Computed tomography of the lumbar spine without contrast. Radiation optimization: All CT scans at this facility use at least one of these dose optimization techniques: automated exposure control; mA and/or kV adjustment per patient size (includes targeted exams where dose is matched to clinical indication); or iterative reconstruction. COMPARISON: No relevant prior studies available. RADIATION DOSE METRICS: Total DLP (mGy-cm): 1596.58 FINDINGS: Bones/joints: Mild dextro scoliosis of lumbar spine. Straightening of the lumbar lordosis. The alignment is otherwise maintained. Mild osteopenia. The vertebral body heights are maintained. No evidence of acute fractures. There are degenerative changes of the SI joints. L1-L2: Minimal disc bulge. No high-grade spinal canal stenosis. Mild bilateral facet arthropathy. No significant neural foraminal stenosis. L2-L3: Diffuse disc bulge/disc osteophyte complex. Minimal increased posterior epidural fat. No high-grade spinal canal stenosis. Mild bilateral facet arthropathy. Mild bilateral neural foraminal stenosis, worse on left side. L3-L4: Diffuse disc bulge/disc osteophyte complex. Mild spinal canal narrowing. No high-grade spinal canal stenosis. Bilateral facet arthropathy. Mild bilateral neural foraminal stenosis. L4-L5: Diffuse disc bulge/disc osteophyte complex. No significant central canal stenosis. Bilateral facet arthropathy. Moderate bilateral neural foraminal stenosis. L5-S1: Diffuse disc bulge/disc osteophyte complex, eccentric to the left. No high-grade central canal stenosis. [id number] left lateral recess stenosis. Bilateral facet arthropathy. Moderate to severe bilateral neural foramina stenosis. Adrenal glands: There is a heterogenous predominantly hypodense right adrenal mass with multiple small foci of calcifications, measuring approximately 5.4 x 3.9 x 4.3 cm in the transaxial and craniocaudal dimensions, (series 4, image 29, and series 6, image 55). Vasculature: There are atherosclerotic calcifications of the abdominal aorta and its branches. Lymph nodes: Small retroperitoneal lymph nodes are noted. Soft tissues: Unremarkable. CT/CT lumbar spine wo con* [id number] IMPRESSION: 1. There is a 5.4 x 3.9 x 4.3 cm right adrenal mass, with multiple small calcifications, which is a nonspecific finding and appears grossly similar to the prior CT of the abdomen from 01/24/2022. 2. Multilevel degenerative disc and joint disease of the lumbar spine as detailed level by level above, worst at L5-S1, as outlined. 3. No pathologic fractures are identified.
[2024-09-04] MEDS: dexamethasone 10 mg/mL INJ IM (22:58)
[2024-09-04] MEDS: ketorolac 30 mg/mL INJ IVP (22:59)
[2024-09-04] MEDS: orphenadrine 30 mg/mL Inj 2 mL 60 MG IVP (23:04)
[2024-09-05] VITALS: BP 167/96; PULSE 67; O2SAT 96
[2024-09-05 00:25] VITALS: BP 176/116; PULSE 70; RESP 18; O2SAT 97
[2024-09-05] MEDS: methocarbamol 750 mg Tablet PO (00:37)
== END 2024-09-05 00:38 | disposition home or self-care (01) ==
PROVIDERS: Emergency Provider Physician Assistant; PCP Nurse Practitioner Family
DX: M54.9 Dorsalgia, unspecified (principal); Z79.84 Long term (current) use of oral hypoglycemic drugs; Z79.01 Long term (current) use of anticoagulants; F17.210 Nicotine dependence, cigarettes, uncomplicated; Z85.038 Personal history of other malignant neoplasm of large intestine; J44.9 Chronic obstructive pulmonary disease, unspecified; I10 Essential (primary) hypertension; E13.9 Other specified diabetes mellitus without complications; I25.10 Atherosclerotic heart disease of native coronary artery without angina pectoris
CPT/HCPCS: 72131; 96374; 96375; 99285; J1100; J1885; J2360

== ENCOUNTER → 2025-01-14 11:52 | Outpatient (BNVA) | payer MEDICARE, SELFPAY | PROVIDERS: PCP Nurse Practitioner Family; Visit Provider Nurse Practitioner Family | DX: Z95.3 Presence of xenogenic heart valve (principal) | CPT/HCPCS: 85610 ==

== ENCOUNTER → 2025-02-12 13:13 | Outpatient (BNVA) | payer MEDICARE, SELFPAY | PROVIDERS: PCP Nurse Practitioner Family; Visit Provider Nurse Practitioner Family | DX: I48.91 Unspecified atrial fibrillation (principal) | CPT/HCPCS: 85610 ==

== ENCOUNTER → 2025-04-08 15:56 | Outpatient (BNVA) | payer MEDICARE, SELFPAY | PROVIDERS: PCP Nurse Practitioner Family; Visit Provider Nurse Practitioner Family | DX: I10 Essential (primary) hypertension (principal); E13.9 Other specified diabetes mellitus without complications; R97.20 Elevated prostate specific antigen [PSA]; R53.83 Other fatigue; G47.33 Obstructive sleep apnea (adult) (pediatric) | CPT/HCPCS: 80053; 80061; 82306; 82607; 83036; 84153; 84443; 85025 ==

== ENCOUNTER → 2025-04-09 08:48 | Outpatient (BNVA) | payer MEDICARE, SELFPAY | PROVIDERS: PCP Nurse Practitioner Family; Visit Provider Nurse Practitioner Family | DX: Z79.01 Long term (current) use of anticoagulants (principal) | CPT/HCPCS: 85610 ==